=== PATIENT | female | born 1970 | race Caucasian/White ===

== ENCOUNTER 2020-02-17 08:00 | Outpatient (NON) | payer BC, SELFPAY ==
[2020-02-18 14:01] LABS: SARS-CoV-2 RNA PCR Negative
== END 2020-02-17 08:01 ==
PROVIDERS: PCP Internal Medicine; Visit Provider Internal Medicine
DX: J11.1 Influenza due to unidentified influenza virus with other respiratory manifestations (principal); Z20.828 Contact with and (suspected) exposure to other viral communicable diseases
CPT/HCPCS: 87635; C9803; U0003

== ENCOUNTER 2020-03-24 10:03 | Outpatient (CLI) | payer BC, SELFPAY ==
[2020-03-24 10:46] LABS: Alanine Aminotransferase 24 U/L (4-35); Albumin Level 4.5 g/dL (3.5-5.1); Alkaline Phosphatase 103 U/L (38-126); Aspartate Amino Transferase 31 U/L (14-36); Bilirubin,Total 0.3 mg/dL (0.2-1.3); Blood Urea Nitrogen 10 mg/dL (7-17); Calcium 8.9 mg/dL (8.4-10.2); Carbon Dioxide 25 mmol/L (22-30); Chloride 103 mmol/L (98-107); Cholesterol 189 mg/dL (0-200); Estimated Glomerular Filt Rate > 60; Glucose 117 mg/dL (65-105); HDL Direct 40 mg/dL; Potassium 3.9 mmol/L (3.4-5.0); Sodium 138 mmol/L (137-145); Triglycerides 135 mg/dL (<150)
[2020-03-24 10:57] LABS: LDL Cholesterol Direct 113 mg/dL
== END 2020-03-24 10:04 | disposition home or self-care (01) ==
LOC: ANHLAB 10:06
PROVIDERS: PCP Internal Medicine; Visit Provider Internal Medicine
DX: Z79.899 Other long term (current) drug therapy (principal); Z13.1 Encounter for screening for diabetes mellitus; Z13.220 Encounter for screening for lipoid disorders
CPT/HCPCS: 36415; 80053; 80061

== ENCOUNTER 2021-07-22 11:26 | Outpatient (CLI) | payer BC, SELFPAY ==
[2021-07-22 12:51] LABS: Add Urine Microscopic? YES; Appearance Urine Clear (Clear); Bilirubin Urine Negative (Negative); Blood Urine Negative (Negative); Color Urine Yellow (Yellow); Glucose Urine UA Negative (Negative); Ketones Urine Negative (Negative); Leukocyte Esterase Ur 3+ LEU/UL (Negative); Mucus Urine Rare /lpf; Nitrate Urine Negative (Negative); Protein Urine Negative (Negative); RBC Urine 0-2 /hpf (0-2); Specific Grav Ur 1.016 (1.001-1.035); Squamous Epithelial Cell Urine Many /hpf (Few); Urobilinogen Urine Negative mg/dL (<2.0)
[2021-07-22 13:03] LABS: Alanine Aminotransferase 19 U/L (4-35); Albumin Level 4.8 g/dL (3.5-5.1); Alkaline Phosphatase 77 U/L (38-126); Anion Gap 9 mmol/L (8-16); Aspartate Amino Transferase 26 U/L (14-36); Bilirubin,Total 0.6 mg/dL (0.2-1.3); Blood Urea Nitrogen 10 mg/dL (7-17); Calcium 9.7 mg/dL (8.4-10.2); Carbon Dioxide 27 mmol/L (22-30); Chloride 104 mmol/L (98-107); Cholesterol 198 mg/dL (0-200); Estimated Glomerular Filt Rate > 60; Glucose 90 mg/dL (65-110); HDL Direct 53 mg/dL; Potassium 4.2 mmol/L (3.4-5.0); Sodium 140 mmol/L (137-145); Triglycerides 110 mg/dL (<150)
[2021-07-22 13:14] LABS: LDL Cholesterol Direct 91 mg/dL
== END 2021-07-22 11:27 | disposition home or self-care (01) ==
PROVIDERS: PCP Internal Medicine; Visit Provider Internal Medicine
DX: N39.0 Urinary tract infection, site not specified (principal); I10 Essential (primary) hypertension
CPT/HCPCS: 36415; 80053; 80061; 81001; 87086; 87088

== ENCOUNTER 2022-12-03 00:13 | Emergency (ER) | payer BC, SELFPAY ==
[2022-12-03 00:31] VITALS: BP 114/7; PULSE 117; RESP 20; TEMP 37.1; O2SAT 95
--- NOTE | 2022-12-03 01:20 | PC.NURSE ---
Patient approached the intake desk and informed science writer that she was going to just go home. Reported she wasn't comfortable and she just wanted to go home and be comfortable. Patient alert and ambulatory without difficulty out of ED exit.
== END 2022-12-03 01:21 | disposition left against medical advice (07) ==
PROVIDERS: PCP Internal Medicine
DX: R53.1 Weakness (principal)
CPT/HCPCS: 99199

== ENCOUNTER 2022-12-03 18:44 | Emergency (ER) | payer BC, SELFPAY | END 2022-12-03 18:45 | disposition left against medical advice (07) | PROVIDERS: PCP Internal Medicine | DX: Z53.21 Procedure and treatment not carried out due to patient leaving prior to being seen by health care provider (principal) | CPT/HCPCS: 99199 ==

== ENCOUNTER 2023-05-24 13:29 | Outpatient (CLI) | payer BC, SELFPAY ==
--- NOTE | ~2023-05-24 | CT_ITS ---
EXAMINATION: CT brain wo con DATE: 05/24/2023 13:46 INDICATION: Headache. TECHNIQUE: Computed tomography (CT) of the head was performed without intravenous contrast. The mA wa s adjusted according to patient size. Iterative reconstruction technique was employed. The dose-lengt h product was 605.33 mGy-cm. COMPARISON: None FINDINGS: There is artifact from bilateral deep brain stimulators. There is no intracranial hemorrhag e, acute infarction, or abnormal intracranial mass lesion. The ventricles are normal in size. The par anasal sinuses are clear. The mastoid air cells are normal. IMPRESSION: 1. No acute intracranial pathology. Artifact from bilateral deep brain stimulators decreases sensitiv ity. Reviewed, dictated and finalized at location A. IMPRESSION: 1. No acute intracranial pathology. Artifact from bilateral deep brain stimulat ors decreases sensitivity.
== END 2023-05-24 13:30 | disposition home or self-care (01) ==
PROVIDERS: PCP Internal Medicine; Visit Provider Internal Medicine
DX: R51.9 Headache, unspecified (principal); Z96.82 Presence of neurostimulator
CPT/HCPCS: 70450

== ENCOUNTER 2024-02-29 10:05 | Outpatient (CLI) | payer BC, OTHER, SELFPAY ==
[2024-02-29 11:26] LABS: Alanine Aminotransferase 24 U/L (6-35); Albumin Level 4.6 g/dL (3.5-5.1); Alkaline Phosphatase 82 U/L (38-126); Anion Gap 7 mmol/L (4-12); Aspartate Amino Transferase 27 U/L (14-36); Bilirubin,Total 0.6 mg/dL (0.2-1.3); Blood Urea Nitrogen 11 mg/dL (7-17); Carbon Dioxide 26 mmol/L (22-30); Chloride 106 mmol/L (98-107); Cholesterol 193 mg/dL (0-200); Estimated Glomerular Filt Rate > 60; Glucose 98 mg/dL (65-110); HDL Direct 47 mg/dL; Potassium 4.3 mmol/L (3.4-5.0); Sodium 139 mmol/L (137-145); Triglycerides 119 mg/dL (<150)
[2024-02-29 11:37] LABS: LDL Cholesterol Direct 113 mg/dL
== END 2024-02-29 10:06 | disposition home or self-care (01) ==
LOC: ANHLAB 10:10
PROVIDERS: PCP Internal Medicine; Visit Provider Internal Medicine
DX: Z13.220 Encounter for screening for lipoid disorders (principal); Z13.1 Encounter for screening for diabetes mellitus; E66.9 Obesity, unspecified
CPT/HCPCS: 36415; 80053; 80061

== ENCOUNTER 2024-08-06 13:49 | Outpatient (CLI) | payer OTHER, SELFPAY ==
--- NOTE | ~2024-08-06 | XR_ITS ---
XR knee LT min 4V Ordering provider: Hailey Sharp MD History: . FELL ON LT KNEE 2 YRS AGO, BUMP ANTERIOR 1 INCH INF TO ERVIN . Comparison: None. FINDINGS: BONES: No acute fracture or dislocation. JOINT SPACES: Normal. SOFT TISSUES: Normal. Ossification of the quadriceps tendon into the patella is noted. IMPRESSION: No acute osseous abnormality left knee. Reviewed, dictated and finalized at location A.
== END 2024-08-06 13:50 | disposition home or self-care (01) ==
LOC: ANHIMG 13:53
PROVIDERS: Visit Provider Internal Medicine
DX: S89.92XA Unspecified injury of left lower leg, initial encounter (principal); X58.XXXA Exposure to other specified factors, initial encounter
CPT/HCPCS: 73564

== ENCOUNTER 2024-08-08 11:55 | Outpatient (CLI) | payer OTHER, SELFPAY ==
[2024-08-08 12:26] LABS: Basophils Absolute Auto 0.1 K/mm3 (0.0-0.1); Basophils Percent Auto 1.7 % (0.2-1.2); Eosinophils Absolute Auto 0.1 K/mm3 (0-0.3); Eosinophils Percent Auto 2.4 % (0-4.4); Hematocrit 43.5 % (37.0-47.0); Hemoglobin 14.2 g/dL (12.0-15.0); Immature Granulocyte Absolute 0.02 K/mm3 (0.00-0.031); Immature Granulocyte Percent A 0.4 % (0-0.5); Lymphocytes Percent Auto 40.9 % (18.3-44.2); Mean Corpuscular HGB Conc 32.6 g/dl (32-36); Mean Corpuscular Hemoglobin 29.3 pg (26-34); Mean Corpuscular Volume 89.9 fl (80-100); Mean Platelet Volume 10.5 fl (7.4-10.4); Monocytes Absolute Auto 0.5 K/mm3 (0.1-0.6); Neutrophils Percent Auto 43.6 % (45.5-73.1); Platelet Count Result 241 k/mm3 (150-375); Red Blood Count 4.84 M/mm3 (4.2-5.4); Red Cell Distribution Width 11.8 % (11.5-14.5); White Blood Count 4.6 K/mm3 (4.5-10.0)
[2024-08-08 12:39] LABS: Alanine Aminotransferase 23 U/L (6-35); Albumin Level 4.6 g/dL (3.5-5.1); Alkaline Phosphatase 94 U/L (38-126); Anion Gap 8 mmol/L (4-12); Aspartate Amino Transferase 28 U/L (14-36); Bilirubin,Total 0.5 mg/dL (0.2-1.3); Blood Urea Nitrogen 13 mg/dL (7-17); Calcium 9.4 mg/dL (8.4-10.2); Carbon Dioxide 30 mmol/L (22-30); Chloride 102 mmol/L (98-107); Estimated Glomerular Filt Rate > 60; Glucose 97 mg/dL (65-110); Potassium 4.5 mmol/L (3.4-5.0); Sodium 140 mmol/L (137-145)
== END 2024-08-08 11:56 | disposition home or self-care (01) ==
LOC: ANHLAB 11:56
PROVIDERS: PCP Internal Medicine; Visit Provider Internal Medicine
DX: Z00.00 Encounter for general adult medical examination without abnormal findings (principal); R53.83 Other fatigue
CPT/HCPCS: 36415; 80053; 84443; 85025

== ENCOUNTER 2024-12-04 16:17 | Outpatient (CLI) | payer OTHER, SELFPAY ==
--- NOTE | ~2024-12-04 | CT_ITS ---
EXAMINATION: CT lumbar spine wo con DATE: 12/04/2024 16:43 INDICATION: Resting tremor. TECHNIQUE: Computed tomography (CT) of the lumbar spine was performed without intravenous contrast. A utomated exposure control and iterative reconstruction technique were employed. The dose-length produ ct was 371.52 mGy-cm. COMPARISON: None FINDINGS: There is 3 degrees levocurvature of lumbar spine. Vertebral body heights are normal. Interv ertebral disc heights are normal. The following disc levels are specifically discussed: L1-L2: The disc does not extend beyond the endplate margin. There is moderate bilateral facet joint o steoarthritis. There is no neural foraminal stenosis. There is no central canal stenosis. L2-L3: The disc is bulging. There is moderate bilateral facet joint osteoarthritis. There is mild chuck ateral neural foraminal stenosis. There is no central canal stenosis. L3-L4: The disc is bulging. There is severe bilateral facet joint osteoarthritis. There is mild bilat eral neural foraminal stenosis. There is mild central canal stenosis. L4-L5: The disc is bulging. There is severe bilateral facet joint osteoarthritis. There is mild bilat eral neural foraminal stenosis. There is mild central canal stenosis. L5-S1: The disc does not extend beyond the endplate margin. There is severe bilateral facet joint ost eoarthritis. There is mild left neural foraminal stenosis. There is no central canal stenosis. IMPRESSION: 1. Mild lumbar spondylosis. Reviewed, dictated and finalized at location A. MAN IMPRESSION: 1. Mild lumbar spondylosis.
--- OUTSIDE RECORDS SUMMARY | 2024-12-04 16:22 | XMS_ITS | Encounter Summary ---
Author Organization [facility] Address [address] [place] [address] Care Team Providers Care Finished Hardware Erector Name Role Phone Hailey Sharp MD Primary Care Provider [phone] Encounter Details Date Type Department Care Team (Late Contact Info) Description 07/14/2019 Telephone [facility] [address] [place] [address] Jared Casey MD [facility] [place] [id number] Social History Tobacco Use Types Packs/Day Years Used Date Smoking Tobacco: Never Smokeless Tobacco: Never Alcohol Use Standard Drinks/Week Comments No 0 (1 standard drink = 0.6 oz pur e alcohol) Sex and Gender Information Value Date Recorded Sex Assigned at Not on file Gender Identity Not on file Sexual Orientation Not on file documented as of this encounter Patient Instructions * Patient Instructions* Prasanna Hyde - 07/14/2019 10:11 AM CDT Current Provider name:BOO Reason for call: NEEDS TO [facility] 07/22 DBS APPT, SATURDAY IS PREFERRED Patient Call Back number: [phone] documented in this encounter Plan of Treatment Upcoming Encounters Date Type Department Care Team (Late Contact Info) Description 05/06/2025 11:30 AM CDT Procedure visit [facility] - [facility]rology [address] [place] [address], [place] [id number] Jared Casey MD [address] [place] [address] [place] [id number] documented as of this encounter Visit Diagnoses Not on filedocumented in this encounter Care Teams Finished Hardware Erector Relationship Specialty Start Date End Date Hailey Sharp MD PCP - General 06/18/19 documented as of this encounter
--- OUTSIDE RECORDS SUMMARY | 2024-12-04 16:22 | XMS_ITS | Patient Health Summary ---
Author Organization [facility] Address [address] [place] [address] Care Team Providers Care Surgery Manager Name Role Phone Hailey Sharp MD Primary Care Provider [phone] Note from [facility],non-owned Affiliates and Associated Physician Practices is amultiple site organization consisting of ambulatory clinics and hospital sitesin [place], [place], [place] and [place]. This disclosure is being madepursuant to the Care Everywhere program and may not contain all information available regarding this patient. Last updated 18.[facility] Allergies * Adhesive Sensitivity(Skin Reactions) -Low Criticality * Baclofen(Dizziness) -Low Criticality * Bupropion(Nausea and/or Vomiting) -Low Criticality * Latex(Rash) -Medium Criticality * Naltrexone(Nausea and/or Vomiting) -Low Criticality * Penicillin G(Nausea and/or Vomiting) -Low Criticality * Skin Adhesives(Urticaria) -Medium Criticality Medications * Be aware that medications may not be up to date on this document. Alwaysverify current medications with the patient. * celecoxib (CELEBREX) 50 MG capsule Take 2 (two) capsules by mouth once daily * CONTRAVE 8-90 MG tablet(Started 09/29/2019) TK 1 T PO BID * Nurtec [address] 1 TABLET ON OR UNDER THE TONGUE ONCE A DAY NEEDED FOR ACUTE/SEVERE MIGRAINE * escitalopram (Lexapro) 20 MG tablet(Started 04/29/2024) Take 1 (one) tablet by mouth once daily * clobetasol (Temovate) 0.05 % cream(Started 04/21/2024) * eszopiclone (Lunesta) 2 MG tablet(Started 02/18/2024) TAKE 1 TABLET BY MOUTH DAILY AT BEDTIME NEEDED FOR INSOMNIA * zolpidem CR (Ambien Cr) 6.25 MG tablet(Started 01/30/2024) TAKE 1 TABLET BY MOUTH DAILY AT BEDTIME NEEDED FOR INSOMNIA Active Problems Problem Noted Date Diagnosed Date Migraine without status migrainosus, not intract able 03/27/2018 Presence of other specified functional implants 01/13/2015 S/P deep brain stimulator placement 01/13/2015 Essential tremor 12/31/2014 Tremor, essential 06/01/2014 Social History Tobacco Use Types Packs/Day Years Used Date Smoking Tobacco: Never Smokeless Tobacco: Never Tobacco Cessation:Counseling Given: No Alcohol Use Standard Drinks/Week Comments No 0 (1 standard drink = 0.6 oz pur e alcohol) Sex and Gender Information Value Date Recorded Sex Assigned at Not on file Gender Identity Not on file Sexual Orientation Not on file Last Filed Vital Signs Vital Sign Reading Time Taken Comments Blood Pressure 123/82 05/06/2024 7:50 AM CDT Pulse 84 05/06/2024 7:50 AM CDT Temperature 35.8 C (96.5 F) 05/06/2024 7:50 AM CDT Respiratory Rate 18 07/10/2019 10:45 AM CDT Oxygen Saturation 97% 05/06/2024 7:50 AM CDT Inhaled Oxygen Concentration 21% 07/10/2019 5 :50 AM CDT Weight 71.4 kg (157 lb 6.4 oz) 05/06/2024 7:50 A M CDT Height 165.1 cm (5' 5 ) 05/06/2024 7:50 AM CDT Body Mass Index 26.19 05/06/2024 7:50 AM CDT Medical Devices Implanted Type Area Flash Developer Device Identifier Shelf Expiration Date Model / Serial / Lot Vercise M8 Adapter 15cm Implanted:Qty: 2 on 07/10/2019 by Severiano Esteban MD at [facility] Left: Chest Wall 02/15/2020 [id number] / / Kit Gen Vercise Dinorah [facility] - [id number] Implanted:Qty: 1 on 07/10/2019 by Severiano Esteban MD at [facility] Left: Chest Wall [employer] Scimed 04/06/2021 [id number] / [id number] / Procedures * PROC DEEP BRAIN STIMULATOR(Performed 05/06/2024) Performed for Tremor * PROC DEEP BRAIN STIMULATOR(Performed 05/06/2024) Performed for Tremor * DE ANALYS BRN NPGT PRGRMG 15 MIN(Performed 08/17/2020) Performed for Tremor * DE ANALYS BRN NPGT PRGRMG 15 MIN(Performed 04/13/2020) Performed for Benign essential tremor * DE ANALYS BRN NPGT PRGRMG ADDL 15(Performed 04/13/2020) Performed for Benign essential tremor * DE ANALYS BRN NPGT PRGRMG 15 MIN(Performed 10/13/2019) Performed for Benign essential tremor * DE ANALYS BRN NPGT PRGRMG ADDL 15(Performed 10/13/2019) Performed for Benign essential tremor * CARDIAC EKG ORDER(Performed 09/24/2019) * DE ANALYS BRN NPGT PRGRMG 15 MIN(Performed 07/22/2019) Performed for Tremor * DE ANALYS BRN NPGT PRGRMG ADDL 15(Performed 07/22/2019) Performed for Tremor * CARDIAC EKG ORDER(Performed 07/13/2019) * XR CHEST 1VW(Performed 07/10/2019) Performed for Essential tremor * PATHOLOGY TISSUE(Performed 07/10/2019) Performed for Diagnosis unknown * INSERTION CRANIAL NEUROSTIMULATOR GENERATOR(Performed 07/10/2019) Performed for Diagnosis unknown * LARYNGEAL MASK AIRWAY(Performed 07/10/2019) * URINALYSIS W/MICROSCOPIC NO CULTURE(Performed 07/01/2019) Performed for Pre-op testing * PTT [facility](Performed 07/01/2019) Performed for Pre-op testing * PT-INR [facility](Performed 07/01/2019) Performed for Pre-op testing * CBC W AUTO DIFFERENTIAL(Performed 07/01/2019) Performed for Pre-op testing * BASIC METABOLIC PANEL (CALCIUM TOTAL)(Performed 07/01/2019) Performed for Pre-op testing * XR CHEST 2VW(Performed 07/01/2019) Performed for Pre-op testing * EKG 12-LEAD(Performed 07/01/2019) Performed for Pre-op testing * DE ANALYS BRN NPGT PRGRMG 15 MIN(Performed 01/13/2019) Performed for Essential tremor * DE ANALYS BRN NPGT PRGRMG ADDL 15(Performed 01/13/2019) Performed for Essential tremor * DE ANALYZE NEUROSTIM NO PROG(Performed 10/01/2018) Performed for Essential tremor * CT ANGIO BRAIN AND NECK(Performed 04/07/2018) Performed for Numbness * TYPE + SCREEN PANEL(Performed 04/07/2018) * XR CHEST 1VW PORTABLE(Performed 04/07/2018) Performed for Anterior chest wall pain * PT-INR [facility](Performed 04/07/2018) * COMPREHENSIVE METABOLIC PANEL(Performed 04/07/2018) * CBC W AUTO DIFFERENTIAL(Performed 04/07/2018) * CT BRAIN STROKE(Performed 04/07/2018) Performed for Muscle weakness (generalized) * GLUCOSE - POINT OF CARE(Performed 04/07/2018) * DE ELEC BEBE NEUROSTIM CMPLX BRAIN W/PROG; 1 HR(Performed 03/27/2018) Performed for Essential tremor * ERYTHROCYTE SEDIMENTATION RATE(Performed 11/04/2015) * C-REACTIVE PROTEIN(Performed 11/04/2015) * CT HEAD WO CONTRAST(Performed 11/03/2015) * URINALYSIS REFLEX TO MICROSCOPIC NO CULTURE(Performed 11/03/2015) * COMPREHENSIVE METABOLIC PANEL(Performed 11/03/2015) * CBC W AUTO DIFFERENTIAL(Performed 11/03/2015) * CBC W AUTO DIFFERENTIAL(Performed 11/03/2015) * CT GUIDED STEREO LOCALIZATION(Performed 08/13/2015) * BASIC METABOLIC PANEL (CALCIUM TOTAL)(Performed 08/13/2015) * CBC W AUTO DIFFERENTIAL(Performed 08/13/2015) * CBC W AUTO DIFFERENTIAL(Performed 08/13/2015) * XR SKULL 3VW OR LESS(Performed 08/12/2015) * XR NECK SOFT TISSUE(Performed 08/12/2015) * XR CHEST 1VW PORTABLE(Performed 08/12/2015) * FL OARM SURGERY(Performed 08/12/2015) * CT GUIDED STEREO LOCALIZATION(Performed 08/12/2015) * TYPE + SCREEN PANEL(Performed 08/11/2015) * BASIC METABOLIC PANEL (CALCIUM TOTAL)(Performed 08/11/2015) * PTT [facility](Performed 08/11/2015) * PT-INR [facility](Performed 08/11/2015) * CBC W AUTO DIFFERENTIAL(Performed 08/11/2015) * CBC W AUTO DIFFERENTIAL(Performed 08/11/2015) * URINALYSIS W/MICROSCOPIC NO CULTURE(Performed 08/11/2015) * CBC W AUTO DIFFERENTIAL(Performed 06/29/2015) * ERYTHROCYTE SEDIMENTATION RATE(Performed 06/29/2015) * C-REACTIVE PROTEIN(Performed 06/29/2015) * BASIC METABOLIC PANEL (CALCIUM TOTAL)(Performed 06/29/2015) * CBC W AUTO DIFFERENTIAL(Performed 06/29/2015) * XR CHEST 1VW PORTABLE(Performed 06/29/2015) * XR CHEST 1VW PORTABLE(Performed 01/05/2015) * XR NECK SOFT TISSUE(Performed 01/05/2015) * XR CHEST 1VW PORTABLE(Performed 01/05/2015) * TYPE + SCREEN PANEL(Performed 01/05/2015) * URINALYSIS W/MICROSCOPIC NO CULTURE(Performed 01/01/2015) * CULTURE URINE(Performed 01/01/2015) * CT GUIDED STEREO LOCALIZATION(Performed 01/01/2015) * BASIC METABOLIC PANEL (CALCIUM TOTAL)(Performed 01/01/2015) * CBC W AUTO DIFFERENTIAL(Performed 01/01/2015) * CBC W AUTO DIFFERENTIAL(Performed 01/01/2015) * XR SKULL 3VW OR LESS(Performed 12/31/2014) * FL OARM SURGERY(Performed 12/31/2014) * CT GUIDED STEREO LOCALIZATION(Performed 12/31/2014) * TYPE + SCREEN PANEL(Performed 12/31/2014) * COMPREHENSIVE METABOLIC PANEL(Performed 12/23/2014) * PTT [facility](Performed 12/23/2014) * URINALYSIS REFLEX TO MICROSCOPIC NO CULTURE(Performed 12/23/2014) * PT-INR [facility](Performed 12/23/2014) * CBC W AUTO DIFFERENTIAL(Performed 12/23/2014) * CBC W AUTO DIFFERENTIAL(Performed 12/23/2014) * MRI BRAIN WWO CONTRAST(Performed 07/23/2014) * CREATININE BLOOD - POCT (IP) [facility](Performed 07/23/2014) * DERMATOPATHOLOGY(Performed 01/14/2014) Results * PROC DEEP BRAIN STIMULATOR (05/06/2024 11:31 AM CDT) Narrative Jared Casey MD - 05/06/2024 11:31 AM CDT Jared Casey MD 05/06/2024 11:31 AM See procedure note for documentation. I spent 30 minutes in interrogating the battery, documenting the current parameters of amplitude, pulse width, frequency, impedance and current outflow and in reprogramming the deep brain stimulator as described in the clinical note with improvement in his symptoms of rigidity, tremor and bradykinesia. Jared Casey MD PROCEDURE/MINOR SURG ICAL ORDERABLES * DE ANALYS BRN NPGT PRGRMG 15 MIN (08/17/2020 6:33 PM [facility]) Narrative Jared Casey MD - 08/17/2020 6:33 PM [facility] Jared Casey MD 08/17/2020 6:34 PM See procedure note for documentation. I spent 15 minutes in interrogating the battery, documenting the current parameters of amplitude, pulse width, frequency, impedance and current outflow and in reprogramming the deep brain stimulator as described in the clinical note with improvement in his symptoms of, tremor. Jared Casey MD PROCEDURE/MINOR SURG ICAL ORDERABLES * DE ANALYS BRN NPGT PRGRMG ADDL 15, DE ANALYS BRN NPGT PRGRMG 15 MIN (04/13/2020 6:06 PM CDT) Jared Patel MD - 04/13/2020 6:06 PM CDT Jared Casey MD 04/13/2020 6:07 PM See procedure note for documentation. I spent 30 minutes in interrogating the battery, documenting the current parameters of amplitude, pulse width, frequency, impedance and current outflow and in reprogramming the deep brain stimulator as described in the clinical note with improvement in his symptoms of tremor. Jared Casey MD PROCEDURE/MINOR SURG ICAL ORDERABLES * DE ANALYS BRN NPGT PRGRMG ADDL 15, DE ANALYS BRN NPGT PRGRMG 15 MIN (10/13/2019 4:25 PM [facility]) Narrative Jared Casey MD - 10/13/2019 4:25 PM [facility] Jared Casey MD 10/13/2019 4:27 PM See procedure note for documentation. I spent 30 mts in the interrogation and reprogramming of the deep brain stimulator. Jared Casey MD PROCEDURE/MINOR SURG ICAL ORDERABLES * CARDIAC EKG ORDER (09/24/2019 11:26 AM [facility]) Only the most recent of2 resultswithin the time period is included. Narrative 09/24/2019 11:26 AM [facility] Ordered by an unspecified provider. Scanned Document CARDIAC SERVICES ORD ERABLES * DE ANALYS BRN NPGT PRGRMG ADDL 15, DE ANALYS BRN NPGT PRGRMG 15 MIN (07/22/2019 5:23 PM CDT) Narrative Jared Casey MD - 07/22/2019 5:23 PM CDT Jared Casey MD 07/22/2019 5:23 PM See procedure note for documentation. I spent 30 minutes in the interrogation and reprogramming of the deep brain stimulator Jared Casey MD PROCEDURE/MINOR SURG ICAL ORDERABLES * XR CHEST 1VW (07/10/2019 9:02 AM CDT) Anatomical Region Laterality Modality Chest Radiographic Hilda ging 07/10/2019 10:0 5 AM CDT Impressions 07/10/2019 5:16 PM CDT FINDINGS/IMPRESSION: Interval placement of a deep brain stimulator generator which superimposes the left chest with 2 intact leads extending bilaterally superiorly into the neck soft tissues. Reduced lung volumes. There is no focal consolidation, pleural effusion, or pneumothorax. The cardiomediastinal silhouette is partially obscured. Dictated by Chioma Dunbar MD (Resident). This report was approved by Chioma Dunbar on 07/10/2019 4:11 PM . I, Dr. BOB YAN have personally reviewed and interpreted this examination/study. This report was electronically signed by BOB YAN on 07/10/2019 5:16 PM . Narrative 07/10/2019 5:16 PM CDT EXAMINATION: XR CHEST 1VW HISTORY: s/p L generator revision COMPARISON: Comparison is made with a study from 07/01/2019. Procedure Note Bob Yan MD - 07/10/2019 EXAMINATION: XR CHEST 1VW HISTORY: s/p L generator revision COMPARISON: Comparison is made with a study from 07/01/2019. FINDINGS/IMPRESSION: Interval placement of a deep brain stimulator generator whichsuperimposes the left chest with 2 intact leads extending bilaterally superiorly into the neck soft tissues. Reduced lung volumes. There is no focal consolidation, pleural effusion, or pneumothorax. The cardiomediastinal silhouette is partially obscured. Dictated by Chioma Dunbar MD (Resident). This report was approved by Chioma Dunbar on 07/10/2019 4:11 PM . I, Dr. BOB YAN have personally reviewed and interpreted this examination/study. This report was electronically signed by BOB YAN on 07/10/2019 5:16 PM . Adam De Paz MD DIAGNOSTIC IMAGING O RDERABLES * PATHOLOGY TISSUE (07/10/2019 8:36 AM CDT) Case Report Surgical Pathology Report Case: [id number] Authorizing Provider: Severiano Esteban MD Collected: 07/10/2019 08:36 AM Ordering Location: [facility] Received: 07/10/2019 10:05 AM Pathologist: Starr Finnegan MD Specimen: Foreign Object, DBS generator 07/13/2019 10:00 AM CDT [facility] Final Diagnosis Deep brain stimulator, removal: - Foreign object (gross exam) 07/13/2019 10:00 AM T [facility] Clinical History The patient is a 49-year-old woman with deep brain stimulator, who underwent deep brain stimulator generator replacement. 07/13/2019 10:00 AM CDT [facility] Gross Description The requisition and specimen label(s) are identified with the patient name, Marquita Agudelo Received fresh, specimen A, DBS generator, is a 6.5 x 5.0 x 1.5 cm deep brain stimulator, serial number [id number]. Etched is a QR code and [employer]. No sections are taken. DS/erlin 07/13/2019 10:00 AM CDT [facility] Disclaimer The performance characteristics of all immunohistochemical and indirect immunofluorescence stains (if any) cited in this report were determined by the [facility] of [facility]. Some of these tests were developed by our own laboratory and have not been cleared or approved by the US Food and Drug Administration. The FDA does not require this test to go through premarket FDA review. These tests are used for clinical purposes. They should not be regarded as investigational or for research. This laboratory is certified under the Clinical Laboratory Improvement Amendments (CLIA) as qualified to perform high complexity clinical laboratory testing. This case has been personally reviewed and interpreted by the attending (teaching) pathologist. 07/13/2019 10:00 AM CDT [facility] Embedded Images 07/13/2019 10:00 AM CDT [facility] Removal MISCELLANEOUS SAMPLES / Unknown 07/10/2019 8:36 AM CDT 07/10/2019 10:05 AM CDT Comment:Pre-op diagnosis: end of deep brain stimulator Severiano Esteban MD LAB - PATHOLOGY/CYT OLOGY ORDERABLES [facility] [address] [phone] * LARYNGEAL MASK AIRWAY (07/10/2019 7:56 AM CDT) Narrative Jace Duncan, - 07/10/2019 7:56 AM CDT Jace Duncan DO 07/10/2019 7:58 AM LMA Placement Procedure/LDA Note: Patient Location: OR. LMA Insertion Date/Time: 07/10/2019 7:40 AM Procedure: LMA. Pretreatment: 100% O2 Induction: standard IV Patient position: sniffing and supine. Mask Ventilation: easy Type: LMA Size: 4 Number of Attempts: 1. Cuff volume (mL): 10 Placement verified by: direct visualization, bilateral breath sounds, chest auscultation and CO2 monitor Procedure Start Time: 07/10/2019 7:40 AM. Procedure End Time: 07/10/2019 7:41 AM. Procedure Total Time: 1 minutes. Staff Section Anesthesia Provider: Jace Duncan, , Performed the procedure Provider #1: Toni Ramsey MD. Additional Comments: Performed by. Toni Ramsey MD GENERAL ANESTHESIA ORDERABLES * PTT [facility] (07/01/2019 3:43 PM CDT) Only the most recent of3 resultswithin the time period is included. APTT 26.2 23.0 - 38.4 Seconds 07/01/2019 4:21 PM CDT [facility] Comment: * Please Note: New therapeutic range for heparin therapy. * Suggested therapeutic range for full dose I.V. heparin therapy for venous thromboembolism is 65 to 103 seconds. Blood BLOOD SPECIMEN / Unknown Lab Venipuncture / Unknown 07/01/2019 3:43 PM CDT 07/01/2019 3:50 PM CDT Severiano Esteban MD LAB - COAGULATION O JOCE Performing Organization Address City/[facility]/ZIP Co de Phone Number [address] [phone] * PT-INR [facility] (07/01/2019 3:43 PM CDT) Only the most recent of4 resultswithin the time period is included. PT 12.4 12.1 - 14.8 Seconds 07/01/2019 4:21 PM CDT [facility] INR 1.0 See Comment 07/01/2019 4:21 PM T [facility] Comment: The suggested therapeutic range for standard coumadin (warfarin) therapy is an INR of 2.0-3.0. For high-risk patients (Mechanical Mitral Valve Prosthesis, etc.), the suggested prophylactic therapeutic range is an INR of 2.5-3.5. Blood BLOOD SPECIMEN / Unknown Lab Venipuncture / Unknown 07/01/2019 3:43 PM CDT 07/01/2019 3:50 PM CDT Severiano Esteban MD LAB - COAGULATION O JOCE Performing Organization Address City/[facility]/ZIP Co de Phone Number [address] [phone] * (ABNORMAL) URINALYSIS W/MICROSCOPIC NO CULTURE (07/01/2019 3:43 PM T) Only the most recent of3 resultswithin the time period is included. Color UA Yellow Straw, Yellow, Colorless 07/01/2019 4:25 PM [facility] Clarity UA Slt Cloudy Clear, t Cloudy 07/01/2019 4:25 PM [facility] Specific [place] UA 1.019 1.005 - 1.030 07/01/2019 4:25 PM [facility] pH UA 5.0 5.0 - 8.0 pH 07/01/2019 4:25 PM [facility] Protein UA Negative Negative mg/dL 07/01/2019 4:25 PM [facility] Glucose UA Negative Negative mg/dL 07/01/2019 4:25 PM [facility] Ketone UA Negative Negative mg/dL 07/01/2019 4:25 PM [facility] Bilirubin UA Negative Negative mg/dL 07/01/2019 4:25 PM [facility] Blood UA Negative Negative 07/01/2019 4:25 PM [facility] Nitrite UA Negative Negative 07/01/2019 4:25 PM [facility] Leukocyte Esterase Trace(A) Negative 07/01/2019 4:25 PM [facility] Urobilinogen UA Negative Negative mg/dL 07/01/2019 4:25 PM [facility] RBC UA 3-5 None Seen, 0-2, 3-5 /HPF 07/01/2019 4:25 PM [facility] WBC UA 11-20(A) None Seen, 0-5 /HPF 07/01/2019 4:25 PM [facility] Bacteria UA 1+(A) None, Trace /HPF 07/01/2019 4:25 PM [facility] Squamous Epithelial Cells UA 3-5(A) None Seen, 0-2 /HPF 07/01/2019 4:25 PM [facility] Mucus UA 2+(A) None, 1+ /LPF 07/01/2019 4:25 PM [facility] Urine URINE SPECIMEN OBTAINED BY CLEAN CATCH PROCEDURE / Unknown Collection / Unknown 07/01/2019 3:43 PM CDT 07/01/2019 3:50 PM CDT [facility] - 07/01/2019 4:25 PM CDT Severiano Esteban MD LAB - URINALYSIS OR DERABLES [facility] [address] [place] [address], [facility] [phone] * (ABNORMAL) CBC WITH DIFFERENTIAL (07/01/2019 3:43 PM CDT) Only the most recent of14 resultswithin the time period is included. WBC 9.3 3.5 - 10.5 10 3/uL 07/01/2019 4:11 PM [facility] RBC 4.99 3.90 - 5.00 10 6/uL 07/01/2019 4:11 PM [facility] Hemoglobin 14.2 12.0 - 15.5 g/dL 07/01/2019 4:11 PM [facility] Hematocrit 42.5 35.0 - 45.0 % 07/01/2019 4:11 PM [facility] MCV 85.2 81.0 - 97.0 fL 07/01/2019 4:11 PM [facility] MCH 28.5 28.0 - 34.0 pg 07/01/2019 4:11 PM [facility] MCHC 33.4 32.0 - 36.0 g/dL 07/01/2019 4:11 PM [facility] Platelet Count 301 150 - 400 10 3/uL 07/01/2019 4:11 PM [facility] RDW-SD 36.6 36.0 - 50.0 fL 07/01/2019 4:11 PM [facility] RDW-CV 11.9 11.2 - 14.8 % 07/01/2019 4:11 PM [facility] MPV 11.6 9.3 - 12.8 fL 07/01/2019 4:11 PM [facility] nRBC Absolute 0.00 0 10 3/uL 07/01/2019 4:11 PM [facility] nRBC Auto 0.0 0 /100 WBC 07/01/2019 4:11 PM [facility] Neutrophils % 53.4 35.0 - 70.0 % 07/01/2019 4:11 PM [facility] Lymphocytes % 34.5 19.7 - 55.1 % 07/01/2019 4:11 PM [facility] Monocytes % 8.9 3.0 - 15.0 % 07/01/2019 4:11 PM [facility] Eosinophils % 1.7 0.0 - 6.0 % 07/01/2019 4:11 PM [facility] Basophil % 1.1 0.0 - 1.5 % 07/01/2019 4:11 PM [facility] Neutrophils Absolute 5.0 1.6 - 7.0 10 3/uL 07/01/2019 4:11 PM [facility] Lymphocyte Absolute 3.2(H) 0.8 - 2.9 10 3/uL 07/01/2019 4:11 PM [facility] Monocytes Absolute 0.83(H) 0.14 - 0.66 10 3/uL 07/01/2019 4:11 PM [facility] Eosinophils Absolute 0.16 0.00 - 0.45 10 3/uL 07/01/2019 4:11 PM [facility] Basophils Absolute 0.10(H) 0.00 - 0.06 10 3/uL 07/01/2019 4:11 PM [facility] Immature Granulocytes % 0.4 0.0 - 1.0 % 07/01/2019 4:11 PM [facility] Blood BLOOD SPECIMEN / Unknown Lab Venipuncture / Unknown 07/01/2019 3:43 PM CDT 07/01/2019 3:50 PM CDT Severiano Esteban MD LAB - HEMATOLOGY OR DERABLES [facility] [address] [place] [address] * BASIC METABOLIC PANEL (CALCIUM TOTAL) (07/01/2019 3:43 PM CDT) Only the most recent of5 resultswithin the time period is included. BUN 10 7 - 26 mg/dL 07/01/2019 4:19 PM [facility] Creatinine 0.8 0.6 - 1.2 mg/dL 07/01/2019 4:19 PM [facility] Sodium 139 136 - 145 mmol/L 07/01/2019 4:19 PM [facility] Potassium 4.1 3.5 - 4.5 mmol/L 07/01/2019 4:19 PM [facility] Chloride 103 98 - 107 mmol/L 07/01/2019 4:19 PM [facility] CO2 27 22 - 29 mmol/L 07/01/2019 4:19 PM [facility] Glucose 86 70 - 115 mg/dL 07/01/2019 4:19 PM [facility] Calcium 9.8 8.4 - 10.2 mg/dL 07/01/2019 4:19 PM [facility] Anion Gap 13 8 - 18 07/01/2019 4:19 PM [facility] BUN/Creatinine Ratio 13 7 - 23 07/01/2019 4:19 PM [facility] Osmolality Calculated 286 270 - 300 mOsm/kg 07/01/2019 4:19 PM [facility] eGFR >60 >60 mL/min/1.7 3 m2 07/01/2019 4:19 PM [facility] Blood BLOOD SPECIMEN / Unknown Lab Venipuncture / Unknown 07/01/2019 3:43 PM CDT 07/01/2019 3:50 PM CDT Severiano Esteban MD LAB - CHEMISTRY ORD ERABLES [address] [phone] * XR CHEST 2VW (07/01/2019 3:37 PM CDT) Anatomical Region Laterality Modality Chest Radiographic Hilda ging 07/01/2019 3:37 PM CDT Impressions 07/01/2019 4:29 PM CDT IMPRESSION: No acute pulmonary process. Dictated by Tong Callahan MD (residential treatment staff). I, Dr. BOB YAN have personally reviewed and interpreted this examination/study. This report was electronically signed by BOB YAN on 07/01/2019 4:29 PM . Narrative 07/01/2019 4:29 PM CDT EXAMINATION: XR CHEST 2VW HISTORY: Z01.818: Pre-op testing COMPARISON: Comparison is made with chest radiograph dated 04/07/2018. FINDINGS: A deep brain stimulator generator superimposes the left chest wall with two intact leads extending bilaterally superiorly into the neck soft tissues. There is no focal consolidation, pleural effusion, or pneumothorax. The cardiomediastinal silhouette is normal. The visible bony thorax is intact. Procedure Note Bob Yan MD - 07/01/2019 EXAMINATION: XR CHEST 2VW HISTORY: Z01.818: Pre-op testing COMPARISON: Comparison is made with chest radiograph dated 04/07/2018. FINDINGS: A deep brain stimulator generator superimposes the left chest wall with two intact leads extending bilaterally superiorly into the neck soft tissues. There is no focal consolidation, pleural effusion, or pneumothorax. The cardiomediastinal silhouette is normal. The visiblebony thorax is intact. IMPRESSION: No acute pulmonary process. Dictated by Tong Callahan MD (residential treatment staff). I, Dr. BOB YAN have personally reviewed and interpreted this examination/study. This report was electronically signed by BOB YAN on 07/01/2019 4:29 PM . Severiano Esteban MD DIAGNOSTIC IMAGING ORDERABLES * EKG 12-LEAD (07/01/2019 2:39 PM CDT) Ventricular Rate 84 BPM [facility] MUSE Atrial Rate 84 BPM [facility] MUSE P-R Interval 158 ms [facility] MUSE QRS Duration ms 72 ms [facility] MUSE Q-T Interval ms 376 ms [facility] MUSE QTC Calculation (Bezet) 444 ms [facility] M[facility] Calculated P [place] 60 degrees [facility] Calculated R [place] 40 degrees [facility] Calculated T [place] 58 degrees [facility] Interpretation EKG NORMAL SINUS RHYTHM NORMAL ECG NO PREVIOUS ECGS AVAILABLE Confirmed by Nabil Beaver ([id number]), clinical editor Keny Arriaga [id number]) on 08/08/2019 7:59:04 PM [facility] 07/01/2019 2:39 PM CDT 08/08/2019 7:59 PM CDT Severiano Esteban MD ECG ORDERABLES [facility] * DE ANALYS BRN NPGT PRGRMG ADDL 15, DE ANALYS BRN NPGT PRGRMG 15 MIN (01/13/2019 9:42 PM CDT) Narrative Jared Casey MD - 01/13/2019 9:42 PM CDT Jared Casey MD 01/13/2019 9:42 PM See procedure note for documentation. Jared Casey MD PROCEDURE/MINOR SURG ICAL ORDERABLES * DE ANALYZE NEUROSTIM NO PROG (10/01/2018 4:38 PM [facility]) Narrative Jared Casey MD - 10/01/2018 4:38 PM [facility] Jared Casey MD 10/01/2018 4:38 PM See procedure note for documentation. Jared Casey MD PROCEDURE/MINOR SURG ICAL ORDERABLES * CT ANGIO BRAIN AND NECK (04/07/2018 8:14 PM CDT) Anatomical Region Laterality Modality Head Computed Tomogra phy 04/08/2018 7:23 AM CDT Impressions 04/08/2018 7:34 AM CDT IMPRESSION: 1. No acute intracranial hemorrhage. The deep brain stimulator leads are in stable position. 2. No large arterial occlusions or significant stenoses identified in the head or neck. This report was electronically signed by JENNIFER CALDERON on 04/08/2018 7:34 AM . Narrative 04/08/2018 7:34 AM CDT EXAMINATION: 1. Computed tomographic (CT) of the head without contrast. 2. CT angiography of the head without and with contrast 2. CT angiography of the neck with contrast HISTORY: Code Stroke TECHNIQUE: CT of the head was performed without contrast according to standard protocol. Then CT angiography of the head and neck was obtained after the uneventful administration of 50 mL Isovue-370 intravenous contrast. Three dimensional postprocessing was performed by the technologist and sent to the workstation for review. FINDINGS: Comparison is made with a CT head without intravenous contrast dated 11/03/2015. NON-ANGIOGRAPHIC FINDINGS: There are no significant interval changes in the 3 hours interval between the original nonenhanced CT head examination and the nonenhanced portion of the CT angiography of the head. No acute intra- or extra-axial hemorrhage or fluid collections are identified. The bilateral frontal approach deep brain stimulator leads are in stable position, terminating in the subthalamic region, causing streak artifact which slightly hampers evaluation of the adjacent structures. The ventricles are of normal size, shape, and morphology. The basilar cisterns are patent. No mass, mass effect or midline shift is seen. The garcia-white matter differentiation is normal. There are no significant white matter changes or interval infarctions. The orbital contents, paranasal sinuses, and mastoids appear normal. No acute fracture is identified. No soft tissue abnormalities are identified in the neck. The generator of the brain stimulator is in the left upper anterior chest wall. ANGIOGRAPHIC FINDINGS: The visible aortic arch appears normal. There is a common origin of the innominate and left common carotid arteries from the aortic arch. There are no atherosclerotic calcifications. The innominate artery and both subclavian arteries appear normal. The right common and internal carotid arteries as well as the right carotid bifurcation appear normal. The left common and internal carotid arteries as well as the left carotid bifurcation appear normal. The cervical vertebral arteries in the V1 and V2 segments appear normal. The vertebral arteries are codominant. The The distal internal carotid arteries appear normal. The anterior and middle cerebral arteries appear normal, except for hypoplasia of left A1 branch. The [place] is complete. The distal vertebral arteries in the V3 and V4 segments appear normal. The basilar artery and posterior cerebral arteries appear normal. No aneurysms, vascular occlusions, or intracranial stenoses are identified. Procedure Note Jennifer Calderon MD - 04/08/2018 EXAMINATION: 1. Computed tomographic (CT) of the head without contrast. 2. CT angiography of the head without and with contrast 2. CT angiography of the neck with contrast HISTORY: Code Stroke TECHNIQUE: CT of the head was performed without contrast according to standard protocol. Then CT angiography of the head and neck was obtained after the uneventful administration of 50 mL Isovue-370 intravenous contrast. Three dimensional postprocessing was performed by the technologist and sent to the workstation for review. FINDINGS: Comparison is made with a CT head without intravenous contrast dated 11/03/2015. NON-ANGIOGRAPHIC FINDINGS: There are no significant interval changes in the 3 hours intervalbetween the original nonenhanced CT head examination and the nonenhanced portion of the CT angiography of the head. No acute intra- or extra-axial hemorrhage or fluid collections are identified. The bilateral frontal approach deep brain stimulator leadsare in stable position, terminating in the subthalamic region, causingstreak artifact which slightly hampers evaluation of the adjacent structures.The ventricles are of normal size, shape, and morphology. The basilarcisterns are patent. No mass, mass effect or midline shift is seen. Thegray-white matter differentiation is normal. There are no significant white matter changes or interval infarctions. The orbital contents, paranasalsinuses, and mastoids appear normal. No acute fracture is identified. No soft tissue abnormalities are identified in the neck. The generatorof the brain stimulator is in the left upper anterior chest wall. ANGIOGRAPHIC FINDINGS: The visible aortic arch appears normal. There is a common origin of the innominate and left common carotid arteries from the aortic arch. There are no atherosclerotic calcifications. The innominate artery and both subclavian arteries appear normal. The right common and internal carotid arteries as well as the right carotid bifurcation appear normal. Theleft common and internal carotid arteries as well as the left carotid bifurcation appear normal. The cervical vertebral arteries in the V1 and V2 segments appear normal. The vertebral arteries are codominant. The The distal internal carotid arteries appear normal. The anterior and middle cerebral arteries appear normal, except for hypoplasia of left A1 branch. The [place] is complete. The distal vertebral arteriesin the V3 and V4 segments appear normal. The basilar artery and posterior cerebral arteries appear normal. No aneurysms, vascular occlusions, or intracranial stenoses are identified. IMPRESSION: 1. No acute intracranial hemorrhage. The deep brain stimulator leads are in stable position. 2. No large arterial occlusions or significant stenoses identified inthe head or neck. This report was electronically signed by JENNIFER CALDERON on 04/08/2018 7:34 AM . Beth Soni MD CT ORDERABLES * TYPE + SCREEN PANEL (04/07/2018 5:57 PM CDT) Only the most recent of4 resultswithin the time period is included. Antibody Screen NEG 8 6:58 PM CDT [facility] ABO Rh O POS 04/07/2018 6:58 PM CDT [facility] Blood Bank BLOOD SPECIMEN / Unknown 04/07/2018 5:57 PM CDT 04/07/2018 5:57 PM CDT Arturo Cloud MD LAB - BLOOD BANK ORD ERABLES [facility] [address] * XR CHEST 1VW PORTABLE (04/07/2018 5:40 PM CDT) Only the most recent of5 resultswithin the time period is included. Anatomical Region Laterality Modality Chest Radiographic Hilda ging 04/07/2018 5:46 PM CDT Impressions 04/08/2018 9:20 AM CDT FINDINGS/IMPRESSION: A deep brain stimulator generator superimposes the left chest wall with 2 intact leads extending bilaterally superiorly into the neck soft tissues. There is no focal consolidation, pleural effusion, or pneumothorax. The cardiomediastinal silhouette is normal. Dictated by Jarrod Feliciano MD (residential treatment staff). Dr. MOISE Turcios MD have personally reviewed and interpreted this examination/study. This report was electronically signed by MOISE HARMON MD on 04/08/2018 9:20 AM . Narrative 04/08/2018 9:20 AM CDT EXAMINATION: XR CHEST 1VW PORTABLE HISTORY: left chest wall pain COMPARISON: Comparison is made with a study from 08/12/2015. Procedure Note Moise Harmon MD - 04/08/2018 EXAMINATION: XR CHEST 1VW PORTABLE HISTORY: left chest wall pain COMPARISON: Comparison is made with a study from 08/12/2015. FINDINGS/IMPRESSION: A deep brain stimulator generator superimposes the left chest wall with2 intact leads extending bilaterally superiorly into the neck softtissues. There is no focal consolidation, pleural effusion, or pneumothorax. The cardiomediastinal silhouette is normal. Dictated by Jarrod Feliciano MD (residential treatment staff). I, Dr. MOISE HARMON MD have personally reviewed and interpreted this examination/study. This report was electronically signed by MOISE HARMON MD on04/08/2018 9:20 AM . Beth Soni MD DIAGNOSTIC IMAGING O RDERABLES * (ABNORMAL) COMPREHENSIVE METABOLIC PANEL (04/07/2018 5:17 PM T) Only the most recent of3 resultswithin the time period is included. BUN 8 7 - 26 mg/dL 04/07/2018 6:05 PM [facility] Creatinine 1.0 0.6 - 1.2 mg/dL 04/07/2018 6:05 PM [facility] Sodium 139 136 - 145 mmol/L 04/07/2018 6:05 PM [facility] Potassium 4.3 3.5 - 4.5 mmol/L 04/07/2018 6:05 PM [facility] Chloride 103 98 - 107 mmol/L 04/07/2018 6:05 PM [facility] CO2 26 22 - 29 mmol/L 04/07/2018 6:05 PM [facility] Glucose 90 70 - 115 mg/dL 04/07/2018 6:05 PM [facility] Calcium 10.0 8.4 - 10.2 mg/dL 04/07/2018 6:05 PM [facility] Protein Total 8.3 6.0 - 8.3 g/dL 04/07/2018 6:05 PM [facility] Albumin 4.3 3.4 - 5.0 g/dL 04/07/2018 6:05 PM [facility] Bilirubin Total 0.5 0.2 - 1.2 mg/dL 04/07/2018 6:05 PM [facility] Alkaline Phosphatase 112 40 - 150 Units/L 04/07/2018 6:05 PM [facility] ALT 27 0 - 55 Units/L 04/07/2018 6:05 PM [facility] AST 23 5 - 34 Units/L 04/07/2018 6:05 PM [facility] Anion Gap 14 8 - 18 04/07/2018 6:05 PM [facility] BUN/Creatinine Ratio 8 7 - 23 04/07/2018 6:05 PM CDT [facility] Osmolality Calculated 286 270 - 300 mOsm/kg 04/07/2018 6:05 PM CDT [facility] Albumin/Globulin Ratio 1.1 1.1 - 2.3 04/07/2018 6:05 PM CDT [facility] eGFR 59(L) >60 mL/min/1.7 3 m2 04/07/2018 6:05 PM CDT [facility] Blood BLOOD SPECIMEN / Unknown Venipuncture / Unknown 04/07/2018 5:17 PM CDT 04/07/2018 5:21 PM CDT Jacky Singh MD LAB - CHEMISTRY [facility]ISA BAIG Performing Organization Address City/State/[facility] Co de Phone Number [address] [phone] * CT BRAIN STROKE PROTOCOL (04/07/2018 5:07 PM CDT) Anatomical Region Laterality Modality Head Computed Tomogra phy 04/08/2018 7:23 AM CDT Impressions 04/08/2018 7:34 AM CDT IMPRESSION: 1. No acute intracranial hemorrhage. The deep brain stimulator leads are in stable position. 2. No large arterial occlusions or significant stenoses identified in the head or neck. This report was electronically signed by JENNIFER CALDERON on 04/08/2018 7:34 AM . Narrative 04/08/2018 7:34 AM CDT EXAMINATION: 1. Computed tomographic (CT) of the head without contrast. 2. CT angiography of the head without and with contrast 2. CT angiography of the neck with contrast HISTORY: Code Stroke TECHNIQUE: CT of the head was performed without contrast according to standard protocol. Then CT angiography of the head and neck was obtained after the uneventful administration of 50 mL Isovue-370 intravenous contrast. Three dimensional postprocessing was performed by the technologist and sent to the workstation for review. FINDINGS: Comparison is made with a CT head without intravenous contrast dated 11/03/2015. NON-ANGIOGRAPHIC FINDINGS: There are no significant interval changes in the 3 hours interval between the original nonenhanced CT head examination and the nonenhanced portion of the CT angiography of the head. No acute intra- or extra-axial hemorrhage or fluid collections are identified. The bilateral frontal approach deep brain stimulator leads are in stable position, terminating in the subthalamic region, causing streak artifact which slightly hampers evaluation of the adjacent structures. The ventricles are of normal size, shape, and morphology. The basilar cisterns are patent. No mass, mass effect or midline shift is seen. The garcia-white matter differentiation is normal. There are no significant white matter changes or interval infarctions. The orbital contents, paranasal sinuses, and mastoids appear normal. No acute fracture is identified. No soft tissue abnormalities are identified in the neck. The generator of the brain stimulator is in the left upper anterior chest wall. ANGIOGRAPHIC FINDINGS: The visible aortic arch appears normal. There is a common origin of the innominate and left common carotid arteries from the aortic arch. There are no atherosclerotic calcifications. The innominate artery and both subclavian arteries appear normal. The right common and internal carotid arteries as well as the right carotid bifurcation appear normal. The left common and internal carotid arteries as well as the left carotid bifurcation appear normal. The cervical vertebral arteries in the V1 and V2 segments appear normal. The vertebral arteries are codominant. The The distal internal carotid arteries appear normal. The anterior and middle cerebral arteries appear normal, except for hypoplasia of left A1 branch. The [place] is complete. The distal vertebral arteries in the V3 and V4 segments appear normal. The basilar artery and posterior cerebral arteries appear normal. No aneurysms, vascular occlusions, or intracranial stenoses are identified. Procedure Note Jennifer Calderon MD - 04/08/2018 EXAMINATION: 1. Computed tomographic (CT) of the head without contrast. 2. CT angiography of the head without and with contrast 2. CT angiography of the neck with contrast HISTORY: Code Stroke TECHNIQUE: CT of the head was performed without contrast according to standard protocol. Then CT angiography of the head and neck was obtained after the uneventful administration of 50 mL Isovue-370 intravenous contrast. Three dimensional postprocessing was performed by the technologist and sent to the workstation for review. FINDINGS: Comparison is made with a CT head without intravenous contrast dated 11/03/2015. NON-ANGIOGRAPHIC FINDINGS: There are no significant interval changes in the 3 hours intervalbetween the original nonenhanced CT head examination and the nonenhanced portion of the CT angiography of the head. No acute intra- or extra-axial hemorrhage or fluid collections are identified. The bilateral frontal approach deep brain stimulator leadsare in stable position, terminating in the subthalamic region, causingstreak artifact which slightly hampers evaluation of the adjacent structures.The ventricles are of normal size, shape, and morphology. The basilarcisterns are patent. No mass, mass effect or midline shift is seen. Thegray-white matter differentiation is normal. There are no significant white matter changes or interval infarctions. The orbital contents, paranasalsinuses, and mastoids appear normal. No acute fracture is identified. No soft tissue abnormalities are identified in the neck. The generatorof the brain stimulator is in the left upper anterior chest wall. ANGIOGRAPHIC FINDINGS: The visible aortic arch appears normal. There is a common origin of the innominate and left common carotid arteries from the aortic arch. There are no atherosclerotic calcifications. The innominate artery and both subclavian arteries appear normal. The right common and internal carotid arteries as well as the right carotid bifurcation appear normal. Theleft common and internal carotid arteries as well as the left carotid bifurcation appear normal. The cervical vertebral arteries in the V1 and V2 segments appear normal. The vertebral arteries are codominant. The The distal internal carotid arteries appear normal. The anterior and middle cerebral arteries appear normal, except for hypoplasia of left A1 branch. The [place] is complete. The distal vertebral arteriesin the V3 and V4 segments appear normal. The basilar artery and posterior cerebral arteries appear normal. No aneurysms, vascular occlusions, or intracranial stenoses are identified. IMPRESSION: 1. No acute intracranial hemorrhage. The deep brain stimulator leads are in stable position. 2. No large arterial occlusions or significant stenoses identified inthe head or neck. This report was electronically signed by JENNIFER CALDERON on 04/08/2018 7:34 AM . Jacky Singh MD CT ORDERABLES * GLUCOSE - POINT OF CARE (04/07/2018 4:52 PM CDT) Glucose WB/POC 71 70 - 115 mg/dL 04/07/2018 6:16 PM CDT [facility] Specimen Type Arterial/C apillary 04/07/2018 6:16 PM CDT [facility] Blood BLOOD SPECIMEN / Unknown 04/07/2018 4:52 PM CDT 04/07/2018 6:16 PM CDT Narrative [facility] - 04/07/2018 6:16 PM CDT Histopathology Technician: PASQUALE NEW Provider Unknown LAB - POINT OF CARE ORDERABLES Performing Organization Address [facility] Co de Phone Number [address] [phone] * DE ELEC BEBE NEUROSTIM CMPLX BRAIN W/PROG; 1 HR (03/27/2018 2:41 PM CDT) Narrative Jared Casey MD - 03/27/2018 2:41 PM CDT Jared Casey MD 03/27/2018 2:41 PM See procedure note for documentation. Jared Casey MD PROCEDURE/MINOR SURG ICAL ORDERABLES * C-REACTIVE PROTEIN (11/04/2015 12:00 AM [facility]) Only the most recent of2 resultswithin the time period is included. C-Reactive Protein <0.5 <=0.5 mg/dL [facility] Blood specimen (specimen) BLOOD SPECIMEN / Unknown 11/04/2015 11/04/2015 12:05 AM [facility] Ignacio Walton MD LAB - CHEMISTRY [facility]ISA BAIG Performing Organization Address [facility] Co de Phone Number [address] [phone] * ERYTHROCYTE SEDIMENTATION RATE (11/04/2015 12:00 AM [facility]) Only the most recent of2 resultswithin the time period is included. Erythrocyte Sedimentation Rate Westergren 18 0 - 20 MM/HR [facility] Comment: ########################################################################## # Please Note: New age specific reference ranges have been implemented. # ########################################################################## Blood specimen (specimen) BLOOD SPECIMEN / Unknown 11/04/2015 11/04/2015 12:05 AM [facility] Ignacio Walton MD LAB - HEMATOLOGY ORD ERABLES [address] [phone] * CT HEAD WO CONTRAST (11/03/2015 11:19 PM [facility]) Anatomical Region Laterality Modality Head Other Impressions 11/04/2015 6:35 AM [facility] IMPRESSION: 1. No acute intracranial process. Preliminary findings were relayed to Dr. Walton at 11:42 PM on 03 November 2015 by Boo Mustafa. This report was electronically signed by LEOLA SCRUGGS M.D. on 11/04/2015 6:35 AM . Narrative 11/04/2015 6:35 AM [facility] EXAMINATION: Computed tomography (CT) of the head without contrast HISTORY: Seizure TECHNIQUE: CT of the head was performed without contrast according to standard protocol. FINDINGS: Comparison is made with a study from 13 August 2015. No acute intra- or extra-axial fluid collections are identified. Hyperattenuation along the anterior left frontal lobe represents Banda scatter. The ventricles are of normal size, shape, and morphology. The basilar cisterns are patent. No mass effect or midline shift is seen. The garcia-white matter differentiation is normal. Bilateral frontal approach deep brain stimulator leads terminating in the subthalamic region are unchanged in position. The visualized portions of the orbits, paranasal sinuses, and mastoids appear normal. No acute fracture is identified. Procedure Note Leola Scruggs MD - 01/11/2018 EXAMINATION: Computed tomography (CT) of the head without contrast HISTORY: Seizure TECHNIQUE: CT of the head was performed without contrast according tostandard protocol. FINDINGS: Comparison is made with a study from 13 August 2015. No acute intra- or extra-axial fluid collections are identified.Hyperattenuation along the anterior left frontal lobe represents Compt[place]atter. The ventricles are of normal size, shape, and morphology. Thebasilar cisterns are patent. No mass effect or midline shift is seen. The garcia-white matter differentiation is normal.Bilateral frontal approach deep brain stimulator leads terminating in thesubthalamic region are unchanged in position. The visualized portions ofthe orbits, paranasal sinuses, and mastoids appear normal. No acute fracture is identified. IMPRESSION IMPRESSION: 1. No acute intracranial process. Preliminary findings were relayed to Dr. Walton at 11:42 PM on October2015 by Boo Mustafa. This report was electronically signed by LEOLA SCRUGGS M.D. on 11/04/20156:35 AM . Ignacio Walton MD CT ORDERABLES * (ABNORMAL) URINALYSIS REFLEX TO MICROSCOPIC NO CULTURE (11/03/2015 10:36 PM [facility]) Only the most recent of2 resultswithin the time period is included. Color UA Yellow Straw, Yellow, Colorless, Light Yellow [facility] Clarity UA Hazy(A) Clear [facility] Specific [place] UA 1.034(H) 1.001 - 1.030 [facility] pH UA 5.5 5.0 - 8.0 [facility] Protein UA 30(A) <=20 mg/dL [facility] Glucose UA Negative Negative mg/dL [facility] Ketone UA Negative Negative mg/dL [facility] Bilirubin UA Negative Negative mg/dL [facility] Blood UA Negative Negative [facility] Nitrite UA Negative Negative [facility] Leukocyte Esterase Negative Negative [facility] Urobilinogen UA 2.0 <2.0 mg/dL [facility] RBC UA 6 0 - 8 /HPF [facility] WBC UA 5(H) 0 - 2 /HPF [facility] Squamous Epithelial Cells UA 59(H) 0 - 1 /HPF [facility] Mucus UA Many(A) None /LPF [facility] Urine specimen (specimen) 11/03/2015 10:36 PM [facility] 11/03/2015 10:36 PM [facility] Ignacio Walton MD LAB - URINALYSIS ORD ERABLES [facility] [address] [phone] * CT GUIDED STEREO LOCALIZATION (08/13/2015 4:46 AM CDT) Only the most recent of4 resultswithin the time period is included. Anatomical Region Laterality Modality Breast Other Impressions 08/13/2015 9:10 AM CDT IMPRESSION: 1. Interval right frontal abigail hole creation for a right frontal approach deep brain stimulator lead placement terminating in the region of the right inferior thalamus. Minimal pneumocephalus. Left frontal approach deep brain stimulator lead is unchanged and terminates in the region of the left inferior thalamus. This report was electronically signed by SAMEER CORCORAN M.D. on 08/13/2015 9:10 AM . Narrative 08/13/2015 9:10 AM CDT EXAMINATION: Computed tomography (CT) of the head without contrast HISTORY: Evaluate deep brain stimulator leads. TECHNIQUE: CT of the head was performed without contrast according to stereotactic protocol. FINDINGS: Comparison is made to prior head CT from 08/12/2015. There has been interval right frontal abigail hole creation for placement of a right frontal approach deep brain stimulator lead terminating in the region of the right inferior thalamus. Minimal pneumocephalus overlies the right frontal lobe. A left frontal approach deep brain stimulator lead is unchanged and terminates in the region of the left inferior thalamus. No acute intra-or extra-axial fluid collections are identified. No mass effect or midline shift. The ventricles are normal in size. The basilar cisterns are patent. The paranasal sinuses and mastoid air cells are clear. The orbits appear grossly normal. Mild soft tissue swelling overlies the calvarium. Procedure Note Sameer Corcoran MD - 01/11/2018 EXAMINATION: Computed tomography (CT) of the head without contrast HISTORY: Evaluate deep brain stimulator leads. TECHNIQUE: CT of the head was performed without contrast according tostereotactic protocol. FINDINGS: Comparison is made to prior head CT from 08/12/2015. There has been interval right frontal abigail hole creation for placement ofa right frontal approach deep brain stimulator lead terminating in theregion of the right inferior thalamus. Minimal pneumocephalus overlies theright frontal lobe. A left frontal approach deep brain stimulator lead is unchanged and terminates in theregion of the left inferior thalamus. No acute intra-or extra-axial fluidcollections are identified. No mass effect or midline shift. Theventricles are normal in size. The basilar cisterns are patent. The paranasal sinuses and mastoid air cells areclear. The orbits appear grossly normal. Mild soft tissue swellingoverlies the calvarium. IMPRESSION IMPRESSION: 1. Interval right frontal abigail hole creation for a right frontal approachdeep brain stimulator lead placement terminating in the region of theright inferior thalamus. Minimal pneumocephalus. Left frontal approachdeep brain stimulator lead is unchanged and terminates in the region of the left inferior thalamus. This report was electronically signed by SAMEER CORCORAN M.D. on 08/13/20159:10 AM . Severiano Esteban MD CT ORDERABLES * XR SKULL 3VW OR LESS (08/12/2015 3:43 PM CDT) Only the most recent of2 resultswithin the time period is included. Anatomical Region Laterality Modality Head Other Impressions 08/12/2015 4:42 PM CDT Findings/impression: There is interval addition of a right-sided lead. Intact bilateral frontoparietal approach deep brain stimulator leads terminate terminates to the right and left of midline. The calvarium is otherwise intact. The visualized sinuses are unremarkable. Reported dictated by Tal Woodall MD (resident services coordinator). This report was approved by Tal Woodall M.D. on 08/12/2015 4:35 PM . I, Dr. SHARITA CAMPOS M.D. have personally reviewed and interpreted this examination/study. This report was electronically signed by SHARITA CAMPOS M.D. on 08/12/2015 4:42 PM . Narrative 08/12/2015 4:42 PM CDT Exam: Skull radiograph, 2 views Date: 08/12/2015 3:43 PM History: Status post deep brain simulator leads Comparison: Prior skull radiograph dated 12/31/2014 Procedure Note Sharita Campos MD - 01/11/2018 Exam: Skull radiograph, 2 views Date: 08/12/2015 3:43 PM History: Status post deep brain simulator leads Comparison: Prior skull radiograph dated 12/31/2014 IMPRESSION Findings/impression: There is interval addition of a right-sided lead. Intact bilateralfrontoparietal approach deep brain stimulator leads terminate terminatesto the right and left of midline. The calvarium is otherwise intact. Thevisualized sinuses are unremarkable. Reported dictated by Tal Woodall MD (resident services coordinator). This report was approved by Tal Woodall M.D. on 08/12/2015 4:35PM . Dr. SHARITA Turcios M.D. have personally reviewed and interpreted thisexamination/study. This report was electronically signed by SHARIAT CAMPOS M.D. on08/12/2015 4:42 PM . Severiano Esteban MD DIAGNOSTIC IMAGING ORDERABLES * XR NECK SOFT TISSUE (08/12/2015 3:43 PM CDT) Only the most recent of2 resultswithin the time period is included. Anatomical Region Laterality Modality Head Other Impressions 08/12/2015 4:42 PM CDT IMPRESSION: Intact deep brain stimulator leads within the neck This report was approved by Tal Woodall M.D. on 08/12/2015 4:[address] SHARITA Turcios M.D. have personally reviewed and interpreted this examination/study. This report was electronically signed by SHAIRTA CAMPOS M.D. on 08/12/2015 4:42 PM . Narrative 08/12/2015 4:42 PM CDT EXAMINATION: Neck soft tissue radiograph radiograph 2 views HISTORY: Status post left deep brain with replacement COMPARISON: Prior neck radiograph dated 01/05/2015 FINDINGS: A left upper chest deep brain stimulator generator is again noted with interval addition of an intact lead that extends superiorly within the right neck. Previously noted left lead is intact. No prevertebral soft tissue swelling is identified. Procedure Note Sharita Campos MD - 01/11/2018 EXAMINATION: Neck soft tissue radiograph radiograph 2 views HISTORY: Status post left deep brain with replacement COMPARISON: Prior neck radiograph dated 01/05/2015 FINDINGS: A left upper chest deep brain stimulator generator is againnoted with interval addition of an intact lead that extends superiorlywithin the right neck. Previously noted left lead is intact. No prevertebral soft tissue swelling is identified. IMPRESSION IMPRESSION: Intact deep brain stimulator leads within the neck This report was approved by Tal Woodall M.D. on 08/12/2015 4:33PM . I, Dr. SHARITA CAMPOS M.D. have personally reviewed and interpreted thisexamination/study. This report was electronically signed by SHARITA CAMPOS M.D. on08/12/2015 4:42 PM . Severiano Esteban MD DIAGNOSTIC IMAGING ORDERABLES * FL OARM SURGERY LESS 60 MIN (08/12/2015 1:30 PM CDT) Only the most recent of2 resultswithin the time period is included. Anatomical Region Laterality Modality Other Narrative 08/12/2015 4:03 PM CDT Fluoroscopy was used for this exam. Please see the Operative report. Procedure Note Amber Baird MD - 01/11/2018 Fluoroscopy was used for this exam. Please see the Operative report. Severiano Esteban MD FLUOROSCOPY ORDERAB LES * (ABNORMAL) CULTURE URINE (01/01/2015 4:00 AM CDT) Culture Urine ESCHERICHIA COLI(A) [facility] Comment:Greater than 1,000,0 00 CFU/ML Escherichia Coli Urine specimen (specimen) (Urine, Elaine Cath) 01/01/2015 4:00 AM CDT 01/01/2015 5:40 AM CDT Narrative [facility] - 01/04/2015 5:45 AM CDT Specimen Type->Urine Organism Antibiotic Method Susceptibility Escherichia coli Amikacin SUSCEPTIBILITY <=2: Sensitive Escherichia coli Ampicillin SUSCEPTIBILITY 8: Sensitive Escherichia coli Ampicillin-sulbactam SUSCEPTIBILITY 4: Sensitive Escherichia coli Cefazolin SUSCEPTIBILITY <=4: Sensitive Escherichia coli Cefepime SUSCEPTIBILITY <=1: Sensitive Escherichia coli Ceftazidime SUSCEPTIBILITY <=1: Sensitive Escherichia coli Ceftriaxone SUSCEPTIBILITY <=1: Sensitive Escherichia coli Gentamicin SUSCEPTIBILITY <=1: Sensitive Escherichia coli Imipenem SUSCEPTIBILITY <=0.25: Sensitive Escherichia coli Levofloxacin SUSCEPTIBILITY <=0.12: Sensitive Escherichia coli Nitrofurantoin SUSCEPTIBILITY <=16: Sensitive Escherichia coli Piperacillin-tazobactam SUSCEPTIBILIT Y <=4: Sensitive Escherichia coli Tobramycin SUSCEPTIBILITY <=1: Sensitive Escherichia coli Trimethoprim-sulfamethoxazole SUSCEPT IBILITY <=20: Sensitive Escherichia coli Extended-Spectrum Beta-Lactamase SUSC EPTIBILITY Neg: - Severiano Esteban MD LAB - MICROBIOLOGY ORDERABLES [address] [phone] * MRI BRAIN WWO CONTRAST (07/23/2014 5:39 PM CDT) Anatomical Region Laterality Modality Head Other Impressions 07/23/2014 6:18 PM CDT IMPRESSION: 1. No intracranial mass lesion or other intracranial abnormality identified. This report was electronically signed by SAMEER CORCORAN M.D. on 07/23/2014 6:18 PM . Narrative 07/23/2014 6:18 PM CDT EXAMINATION: Magnetic resonance imaging (MRI) of the brain without and with contrast HISTORY: Essential tremor, for deep brain stimulator placement. TECHNIQUE: MRI of the brain was performed prior to and following the uneventful administration of Gadavist 7 mL intravenous gadolinium contrast according to deep brain stimulator protocol. FINDINGS: No prior study is available for comparison. Ventricles are of normal size, shape, and morphology. No mass effect or midline shift. The substantia nigra appears normal. No enhancing lesions are identified. The corpus callosum and sella appear normal. The posterior fossa, brainstem, and craniocervical junction appear normal. The visualized portions of the orbits, mastoids and paranasal sinuses appear normal. Normal flow voids are demonstrated in the carotid arteries and basilar artery. The calvarium and visualized cervical spine appear normal. Procedure Note Sameer Corcoran MD - 03/31/2018 EXAMINATION: Magnetic resonance imaging (MRI) of the brain without andwith contrast HISTORY: Essential tremor, for deep brain stimulator placement. TECHNIQUE: MRI of the brain was performed prior to and following theuneventful administration of Gadavist 7 mL intravenous gadolinium contrastaccording to deep brain stimulator protocol. FINDINGS: No prior study is available for comparison. Ventricles are of normal size, shape, and morphology. No mass effect ormidline shift. The substantia nigra appears normal. No enhancing lesionsare identified. The corpus callosum and sella appear normal. The posteriorfossa, brainstem, and craniocervical junction appear normal. The visualized portions of the orbits, mastoids and paranasal sinusesappear normal. Normal flow voids are demonstrated in the carotid arteriesand basilar artery. The calvarium and visualized cervical spine appearnormal. IMPRESSION IMPRESSION: 1. No intracranial mass lesion or other intracranial abnormalityidentified. This report was electronically signed by SAMEER CORCORAN M.D. on 07/23/20146:18 PM . Jared Casey MD MR ORDERABLES * (ABNORMAL) CREATININE BLOOD - POCT (IP) [facility] (07/23/2014) Creatinine POCT 1.09 0.3 - 1.3 mg/dL [facility] eGFR POCT 59(A) 60 ml/min [facility] 07/23/2014 Jared Casey MD LAB - POINT OF CARE ORDERABLES [facility] * PATHOLOGY TISSUE FOR DERMATOLOGY (01/14/2014 12:00 AM CDT) Result CASE: [id number] PATIENT: MARQUITA GOULD PATHOLOGIC DIAGNOSIS: A. Post neck: TINEA VERSICOLOR B. Right thigh: TINEA VERSICOLOR CLINICAL DATA: A-B: Tinea vs urticaria multiforme vs EAC vs SCLE vs MF vs drug eruption. GROSS DESCRIPTION: A: Received is one formalin filled container labeled with the patient's name and designated post neck. The specimen consists of a punch biopsy measuring [id number]. The specimen is bisected and submitted in 1 cassette. Jar 0. B: Received is one formalin filled container labeled with the patient's name and designated upper right thigh. The specimen consists of a punch biopsy measuring [id number]. Jar 0. MICROSCOPIC DESCRIPTION: SPECIMEN A: In the stratum corneum, there are numerous basophilic hyphae and spores that resemble spaghetti and meatballs . SPECIMEN B: In the stratum corneum, there are numerous basophilic hyphae and spores that resemble spaghetti and meatballs . Electronicall y signed out by Farhana Gilliam M.D. 01/18/2014 2:15:32PM [facility] Comment: Performed at: Dermatopathology Laboratory [facility] Department of Dermatology [address] [place] [address], 5[address] [place] [address] Phone number: [phone] FAX: [phone] Skin (tissue) specimen (specimen) 01/14/2014 01/15/2014 Narrative [facility] - 01/18/2014 2:15 PM CDT Preferred Lab:->Derm-Path Specimen A: Type->Punch Site->post neck History->10 yrs slightly scaly BESS negative very itchy vaguely annular pink plaque on entire back, macules chest, arms, thighs Impression->tinea vs urticaria multiforme vs EAC vs SCLE VS MF vs drug eruption Check Margins:->N/A Prior Biopsy->N/A Specimen B: Type->Punch Site->right thigh History->same Impression->same Check Margins:->N/A Prior Biopsy->N/A Eden Serrano MD LAB - PATHOLOGY/CY TOLOGY ORDERABLES [facility] [address] [place] [address]. [address] [place] [address], [facility] [phone] Care Teams Surgery Manager Relationship Specialty Start Date End Date Hailey Sharp MD PCP - General 06/18/19
--- OUTSIDE RECORDS SUMMARY | 2024-12-04 16:22 | XMS_ITS | Clinical Summary ---
Author Organization [facility] Address [address] [place] [address] Care Team Providers Care Biofuels Production Manager Name Role Phone Hailey Sharp MD Primary Care Provider [phone] Source Comments [facility],non-owned Affiliates and Associated Physician Practices is amultiple site organization consisting of ambulatory clinics and hospital sitesin [place], [place] and [place]. This disclosure is being madepursuant to the Care Everywhere program and may not contain all informatio navailable regarding this patient. Last updated 18.[facility] Allergies Active Allergy Reactions Criticality Noted Date Comments Adhesive Sensitivity Skin Reactions Low 09/01/2015 Baclofen Dizziness Low 03/16/2022 Bupropion Nausea and/or Vomiting Low 03/16/2022 Latex Rash Medium 12/24/2014 Needs latex and powder free gloves., Needs latex and powder free gloves. Naltrexone Nausea and/or Vomiting Low 03/16/2022 Penicillin G Nausea and/or Vomiting Low 01/14/2014 Skin Adhesives Urticaria Medium 05/06/2024 Medications * Be aware that medications may not be up to date on this document. Alwaysverify current medications with the patient. Medication Sig Dispensed Refills Start Date End Date Status celecoxib (CELEBREX) 50 MG capsule Take 2 (two) capsules by mouth once daily Active CONTRAVE 8-90 MG tablet TK 1 T PO BID 09/29/2019 Active Nurtec [address] 1 TABLET ON OR UNDER THE TONGUE ONCE A DAY NEEDED FOR ACUTE/SEVERE MIGRAINE Active escitalopram (Lexapro) 20 MG tablet Take 1 (one) tablet by mouth once daily 04/29/2024 Active clobetasol (Temovate) 0.05 % cream 04/21/2024 Active eszopiclone (Lunesta) 2 MG tablet TAKE 1 TABLET BY MOUTH DAILY AT BEDTIME NEEDED FOR INSOMNIA 02/18/2024 Active zolpidem CR (Ambien Cr) 6.25 MG tablet TAKE 1 TABLET BY MOUTH DAILY AT BEDTIME NEEDED FOR INSOMNIA 01/30/2024 Active Active Problems Problem Noted Date Diagnosed Date Migraine without status migrainosus, not intract able 03/27/2018 Presence of other specified functional implants 01/13/2015 S/P deep brain stimulator placement 01/13/2015 Essential tremor 12/31/2014 Tremor, essential 06/01/2014 Family History Medical History Relation Name Comments Nervous Disorder Maternal Grandmother Matthew mor Nervous Disorder Mother Tremor Relation Name Status Comments Maternal Grandmother Mother Social History Tobacco Use Types Packs/Day Years [...] Mass Index 26.19 05/06/2024 7:50 AM CDT Plan of Treatment Upcoming Encounters Date Type Department Care Team (Late st Contact Info) Description 05/06/2025 11:30 AM CDT Procedure visit [facility] - Neurology [address] [place] [id number] Jared Casey MD [address] [facility] [address] [facility] [place] [address] Health Maintenance Due Date Last Done Comments COLOGUARD (AGES 45-75) - COL ON CA SCREENING 1971 COLON MONITORING 1971 COLONOSCOPY - COLON CA SCREENING 1971 CT COLONOGRAPHY - COLON CA SCREENING 1971 Colorectal Cancer Screening 1971 FIT - COLON CA SCREENING 1971 FLEX SIG - COLON CA SCREENING 1971 LIPID TESTING 1971 MAMMOGRAM 1971 PAP SMEAR 1971 HIV SCREENING 1986 HEPATITIS C SCREENING 03/31/1989 DTAP/TDAP/TD VACCINES (1 - Tdap) 1990 HEPATITIS B VACCINE (1 of 3 - 19+ 3-dose series) 1990 PNEUMOCOCCAL VACCINE 50+ (1 of 1 - PCV) 2021 ZOSTER VACCINE (1 of 2) 2021 COVID-19 VACCINE (3 - 2023-2 5 season) 2024 05/19/2021, 04/27/2021 INFLUENZA VACCINE (#1) 2024 DEPRESSION SCREENING 10/14/2024 HIB VACCINE Aged Out No longer eligi ble based on patient's age to complete this topic HPV VACCINE Aged Out No longer eligi ble based on patient's age to complete this topic MENINGOCOCCAL (Group B) VACCINE Aged Out No longer eligible b ased on patient's age to complete this topic MENINGOCOCCAL VACCINE Aged Out No delon filipe eligible based on patient's age to complete this topic PNEUMOCOCCAL VACCINE Aged Out No long er eligible based on patient's age to complete this topic Medical Devices Implanted Type Area Pharmaceutical Engineer Device Identifier Shelf Expiration Date Model / Serial / Lot Vercise M8 Adapter 15cm Implanted:Qty: 2 on 07/10/2019 by Severiano Esteban MD at [facility] Left: Chest Wall 02/15/2020 [id number] / / Kit Gen Vercise Gevia g - [id number] Implanted:Qty: 1 on 07/10/2019 by Severiano Esteban MD at [facility] Left: Chest Wall [employer] 04/06/2021 [id number] / [id number] / Care Teams Biofuels Production Manager Relationship Specialty Start Date End Date Hailey Sharp MD PCP - General 06/18/19
--- OUTSIDE RECORDS SUMMARY | 2024-12-04 16:22 | XMS_ITS | Referral Summary ---
Author Organization [facility] Address [address] [place] [address] Care Team Providers Care Legislative Aide Name Role Phone Antione Wise MD Primary Care Provi cherie Encounters Date Type Department Care Team Description 11/06/2024 Orders Only [facility] Orthopedic and Sports Medicine [address] [place] [address] [phone] Blaise See MD Juvenile osteochondrosis of tibia tubercle, left leg (Primary Dx); Acute internal derangement of left knee 11/06/2024 9:45 AM BATCH MIXER Office Visit [facility] Orthopedic and Sports Medicine [address] [place] [phone] Blaise See MD Juvenile osteochondrosis of tibia tubercle, left leg (Primary Dx) 10/09/2024 3:23 PM BATCH MIXER - 10/09/2024 11:59 PM BATCH MIXER Hospital Encounter [facility] Orthopedics and Sports Medicine [address] [place] [address] [place] [phone] Discharge Disposition: Discharge to home or self care 10/09/2024 7:42 AM BATCH MIXER - 10/09/2024 11:59 PM BATCH MIXER Hospital Encounter [facility] Orthopedics and Sports Medicine [address] [place] [phone] Discharge Disposition: Discharge to home or self care 10/09/2024 2:45 PM BATCH MIXER Office Visit [facility] Orthopedics and Sports Medicine [address] [facility] [address] [place] [address] Liliya Rosa PA Acute internal derangement of left knee (Primary Dx) 09/09/2024 Ancillary Procedure [facility] Outside Films from Last 3 Months Allergies Active Allergy Reactions Criticality Noted Date Comments Adhesive Rash Medium 09/01/2015 Baclofen Dizziness Low 03/16/2022 Bupropion Nausea And Vomiting Low 03/16/2022 Bupropion Hcl Nausea & Vomiting Low 03/16/2022 Latex Rash Medium 12/24/2014 Needs latex and powder free gloves., Needs latex and powder free gloves. Naltrexone Nausea & Vomiting,Na usea And Vomiting Low 03/16/2022 Penicillin Nausea & Vomiting Low 11/16/2024 Penicillins Tissue Adhesive Itching Low 03/16/2022 Medications ibuprofen (ADVIL) 200 mg tablet take 2 tablet by oral route every 6 hours as needed with food 0 0 4 Active eletriptan (RELPAX) 40 mg tablet take 1 tablet by oral route ; if headache returns, the dose may be repeated after 2 hours, but nomore than two doses should be given within a 24-hour period. 9 3 4 Active celecoxib (CeleBREX) 100 mg capsule Take 1 capsule (100 mg total) by mouth 2 (two) times a day Active naltrexone-bup ropion 8-90 mg tablet extended release Take by mouth 2 (two) times a day Active traZODone (DESYREL) 100 mg tablet Take 1 tablet (100 mg total) by mouth nightly Active fluticasone propionate (FLONASE) 50 mcg/actuation nasal sprayIndicatio ns:Facial injury, initial encounter Administer 2 sprays into each nostril daily 16 g 11 2 Active benzonatate (TESSALON) 200 mg capsule 5 Active escitalopram (LEXAPRO) 20 mg tablet Take 1 tablet (20 mg total) by mouth daily Active Wegovy 0.5 mg/0.5 mL auto-injector INJECT 0.5 SUBCUTANEOUSLY ONCE WEEKLY 5 Active Active Problems Problem Noted Date Diagnosed Date Injury of face 03/16/2022 Assessment & Plan (03/16/2022 2:48 PM CDT): Anterior Maxillary fracture Avoid nose blowing, sniff in and spit out Flonase 2 sprays into each nostril while looking down over the sink, do not sniff in or blow nose after use for at least 30 minutes daily Referral to Oral Maxillary facial surgery Closed fracture of maxillary sinus 03/16/2022 Assessment & Plan (03/16/2022 2:48 PM CDT): Anterior Maxillary fracture Avoid nose blowing, sniff in and spit out Flonase 2 sprays into each nostril while looking down over the sink, do not sniff in or blow nose after use for at least 30 minutes daily Referral to Oral Maxillary facial surgery Migraine without status migrainosus, not intract able 03/27/2018 Presence of other specified functional implants 01/13/2015 S/P deep brain stimulator placement 01/13/2015 Spasmodic torticollis 07/14/2014 Overview (01/19/2017): Spasmodic torticollis Essential tremor 05/13/2014 Overview (01/19/2017): Essential tremor Headache 05/13/2014 Overview (01/19/2017): Headache Depression 05/13/2014 Overview (01/19/2017): Depression Anxiety 01/08/2014 Overview (01/17/2017): Anxiety Immunizations Immunization Administration Dates Next Due Influenza, Unspecified 07/23/2023(Deferred: Jessica ent Refused) Pfizer SARS-CoV-2 Monovalent Vaccination (12+ Yrs) PURPLE 06/02/2021,05/19/2021,05/13/2021,2020 TD Preservative Free 10/14/2007 Tetanus toxoid, adsorbed 03/23/2019 Social History Tobacco Use Types Packs/Day Years Used Date Smoking Tobacco: Never Smokeless Tobacco: Never Tobacco Cessation:Counseling Given: Not Answered Alcohol Use Standard Drinks/Week Comments No 0 (1 standard drink = 0.6 oz pur e alcohol) Personal Safety Answer Date Recorded Getting School Help Needed Denies 10/19 Comments No Sex and Gender Information Value Date Recorded Sex Assigned at Not on file Legal Sex Female 2:14 AM BATCH MIXER Gender Identity Not on file Sexual Orientation Not on file Last Filed Vital Signs Vital Sign Reading Time Taken Comments Blood Pressure 112/72 11/06/2024 10:20 AM BATCH MIXER Pulse 75 11/06/2024 10:20 AM BATCH MIXER Temperature 37.2 C (99 F) 12/03/2022 7:44 PM BATCH MIXER Respiratory Rate 21 12/03/2022 11:20 PM BATCH MIXER Oxygen Saturation 96% 12/03/2022 11:20 PM BATCH MIXER Inhaled Oxygen Concentration - - Weight 71.8 kg (158 lb 4.8 oz) 11/06/2024 10:20 AM BATCH MIXER Height 162.6 cm (5' 4 ) 11/06/2024 10:20 AM BATCH MIXER Body Mass Index 27.17 11/06/2024 10:20 AM BATCH MIXER Plan of Treatment Not on file Procedures Procedure Name Priority Date/Time Associated Diagnosis Comments XR KNEE LEFT 4 OR MORE VIEWS Schedule Routine, Read Routine (OP Routine) 10/09/2024 3:25 PM BATCH MIXER Acute internal derangement of left knee XR PELVIS 1 OR 2 VIEWS Schedule Routine, Read Routine (OP Routine) 10/09/2024 3:24 PM BATCH MIXER Acute internal derangement of left knee TN ARTHROCENTESIS ASPIR&/INJ MAJOR JT/BURSA W/O US Routine 10/09/2024 2:45 PM BATCH MIXER Acute internal derangement of left knee CT BODY OUTSIDE REFERENCE Routine 09/09/2024 12:00 AM BATCH MIXER from Last 3 Months Results * XR Knee Left 4+ View (10/09/2024 3:25 PM BATCH MIXER) Anatomical Region Laterality Modality Lower Extremities, Knee Left Digital Radiography Narrative 10/10/2024 7:21 AM BATCH MIXER Weightbearing views of the left knee are reviewed and demonstrate no acute fractures or destructive osseous lesions. Mild tricompartmental degenerative changes present including mild joint space narrowing and small osteophyte of the trochela Liliya RUBIO IMG XR PROCEDURES Final Result * XR Pelvis 1 or 2 Views (10/09/2024 3:24 PM BATCH MIXER) Anatomical Region Laterality Modality Body, Pelvis N/A Digital Radiogra phy Narrative 10/10/2024 7:24 AM BATCH MIXER X-ray of the pelvis viewed and interpreted. There is no evidence of fracture, subluxation, or bony abnormality. Mild degenerative changes of the bilateral femoral acetabular joints. Well demarcated pelvic calcifications also appreciated. Result [facility] Liliya RUBIO IMG XR PROCEDURES Final Result * TN ARTHROCENTESIS ASPIR&/INJ MAJOR JT/BURSA W/O US (10/09/2024 2:45 PM BATCH MIXER) Narrative Blaise See MD - 10/09/2024 2:45 PM BATCH MIXER Liliya Rosa PA 10/10/2024 7:26 AM Large Joint (Hip, Knee, Shoulder) Injection: L knee Performed by: Liliya Rosa PA Authorized by: Liliya Rosa PA Large Joint Injection/Aspiration: Consent Given by: Patient Site marked: the procedure site was marked Verbal consent obtained: Yes Supporting Documentation: Indications: Pain Procedure Details: Location: Knee Site: L knee Prep: patient was prepped and draped in usual sterile fashion Needle Size: 22 G Approach: Anterolateral Ultrasound guided: No Fluroscopic guidance: No Medications: 3 mL lidocaine 20 mg/mL (2 %); 80 mg methylPREDNISolone acetate 80 mg/mL Patient tolerance: Patient tolerated the procedure well with no immediate complications Result [facility] Liliya RUBIO IN CLINIC/BEDSIDE ORDER KERRIE Final Result * CT Body Outside Reference (09/09/2024 12:00 AM BATCH MIXER) Narrative [facility] - 10/09/2024 2:34 PM BATCH MIXER This order has been auto-finalized and does not contain a result. us Provider Transcribed Order IMG CT PROCEDURES Fin al Result [facility] from Last 3 Months [facility] Care Teams Legislative Aide Relationship Specialty Start Date End Date Antione Wise MD [address] [facility] [address] [place] [address] PCP - General Family Practice 11/16/24
--- OUTSIDE RECORDS SUMMARY | 2024-12-04 16:22 | XMS_ITS | Referral Summary ---
Author Organization [facility] Address [address] [address] Care Team Providers Care Sink Maker Name Role Phone Hailey Sharp MD Primary Care Provider [phone] Source Comments [facility],non-owned Affiliates and Associated Physician Practices is amultiple site organization consisting of ambulatory clinics and hospital sitesin [place], [place], [place] and [place]. This disclosure is being madepursuant to the Care Everywhere program and may not contain all information available regarding this patient. Last updated 18.[facility] Allergies Active Allergy Reactions Criticality Noted Date [...] Procedure visit [facility] - Neurology [address] [place] [address], [place] [address] Jared Casey MD [address] [place] [address] [place] [address] Medical Devices Implanted Type Area Organ Grinder Device Identifier Shelf Expiration Date Model / Serial / Lot Vercise M8 Adapter 15cm Implanted:Qty: 2 on 07/10/2019 by Severiano Esteban MD at [facility] Left: Chest Wall 02/15/2020 [id number] / / Kit Gen Sandra Copeland Pending Sale To [facility] - [id number] Implanted:Qty: 1 on 07/10/2019 by Severiano Esteban MD at [facility] Left: Chest Wall EZMove Scimed 04/06/2021 [id number] / [id number] / Care Teams Sink Maker Relationship Specialty Start Date End Date Hailey Sharp MD PCP - General 06/18/19
--- OUTSIDE RECORDS SUMMARY | 2024-12-04 16:22 | XMS_ITS | Continuity of Care Document ---
Author Organization [facility] Address [address] [employer] [address] [place] [address] [place] [address] Phone Care Team Providers Care Vp Scientific Name Role Phone Werner Anguiano MD Unavailable Unavailable Advance Directives Directive Yes / No Effective Date File Name No Information Encounters Encounter Description Practice Location Reason(s) For Visit Diagnoses Date Provider Providers Copied on Encounter [facility], [address] [place], [id number], [place] tel:[phone] [facility] No Information Silvio Caldera. [address] [facility] [place], [id number], [place]. tel:[phone] Family History Family Member Type Diagnosis Age At Onset No Information Payers Payer name Insurance type Covered constitution party ID Authoriza tion(s) No Information Social History Type Description Quantity Date Captured Comments Sex Female Smoking Status No Information Chief Complaint And Reason For Visit No Information Plan Of Treatment Date Type Action Status No Information History Of Present Illness Encounter Date Complaint History Of Prese nt Illness No Information Instructions Date Instruction Additional Infor mation No Information Assessments Type Assessment Date No Information
--- OUTSIDE RECORDS SUMMARY | 2024-12-04 16:23 | XMS_ITS | Clinical Summary ---
Author Organization [facility] Address [address] [place] [address] Care Team Providers Care Postdoctoral Research Associate Name Role Phone Antione Wise MD Primary Care Provi cherie Allergies Active Allergy Reactions Criticality Noted Date [...] (01/19/2017): Depression Anxiety 01/08/2014 Overview (01/17/2017): Anxiety Encounters Date Type Department Care Team Description 11/06/2024 9:45 AM MIRROR MACHINE FEEDER Office Visit [facility] Orthopedic and Sports Medicine [address] [place] [address] [phone] Blaise See MD Juvenile osteochondrosis of tibia tubercle, left leg (Primary Dx) 11/06/2024 Orders Only [facility] Orthopedic and Sports Medicine [address] [place] [address] [phone] Blaise See MD Juvenile osteochondrosis of tibia tubercle, left leg (Primary Dx); Acute internal derangement of left knee 10/09/2024 3:23 PM MIRROR MACHINE FEEDER - 10/09/2024 11:59 PM MIRROR MACHINE FEEDER Hospital Encounter [facility] Orthopedics and Sports Medicine [address] [place] [address] [phone] Discharge Disposition: Discharge to home or self care 10/09/2024 2:45 PM MIRROR MACHINE FEEDER Office Visit [facility] Orthopedics and Sports Medicine [address] [place] [address] [phone] Liliya Rosa PA Acute internal derangement of left knee (Primary Dx) 10/09/2024 7:42 AM MIRROR MACHINE FEEDER - 10/09/2024 11:59 PM MIRROR MACHINE FEEDER Hospital Encounter [facility] Orthopedics and Sports Medicine [address] [place] [phone] Discharge Disposition: Discharge to home or self care 09/09/2024 Ancillary Procedure [facility] Outside Films from Last 3 Months Immunizations Immunization Administration Dates Next Due Influenza, Unspecified 07/23/2023(Deferred: Jessica ent Refused) Pfizer SARS-CoV-2 Monovalent Vaccination (12+ Yrs) PURPLE 06/02/2021,05/19/2021,05/13/2021,2020 TD Preservative Free 10/14/2007 Tetanus toxoid, adsorbed 03/23/2019 Surgical History Surgery Date Site/Laterality Comments PARTIAL HYSTERECTOMY partial hysterectomy OTHER SURGICAL HISTORY rt hip injury: rt hip surgery OTHER SURGICAL HISTORY tremor: deep brain stimulator OTHER SURGICAL HISTORY Essential Tremor: neurologist OTHER SURGICAL HISTORY essential tremors: R (12/2014) and L (07/2015) brain stimulator insertion Medical History Medical History Date Comments Malignant neoplasm of cervix (CMS/HCC) (HCC) Cancer, cervical Hx Other Medical rt hip injury; Comments: AA 05/13/2014 - Hx Other Medical Headache, migra ine Depression Depression Hx Other Medical tremor; Comment s: AAW 02/04/2015 - Hx Other Medical Essential Tremo r; Comments: AA 05/13/2014 - Hx Other Medical essential tremo rs; Comments: [facility] 05/13/2014 - Essential tremor Family History Medical History Relation Name Comments Other Brother developement de lay; Brain cancer Maternal Grandmother brain c ancer; Other Maternal Grandmother ET; Other Mother Tremor, essenti al; /ET; Other Sister 2 Alive and well; Relation Name Status Comments Brother Maternal Grandmother Mother Sister 1 Alive Sister 2 Social History Tobacco Use Types Packs/Day Years [...] on file Legal Sex Female 2:14 AM MIRROR MACHINE FEEDER Gender Identity Not on file Sexual Orientation Not on file Obstetrics History Last Filed Vital Signs Vital Sign Reading Time Taken Comments Blood Pressure 112/72 11/06/2024 10:20 AM MIRROR MACHINE FEEDER Pulse 75 11/06/2024 10:20 AM MIRROR MACHINE FEEDER Temperature 37.2 C (99 F) 12/03/2022 7:44 PM MIRROR MACHINE FEEDER Respiratory Rate 21 12/03/2022 11:20 PM MIRROR MACHINE FEEDER Oxygen Saturation 96% 12/03/2022 11:20 PM MIRROR MACHINE FEEDER Inhaled Oxygen Concentration - - Weight 71.8 kg (158 lb 4.8 oz) 11/06/2024 10:20 AM MIRROR MACHINE FEEDER Height 162.6 cm (5' 4 ) 11/06/2024 10:20 AM MIRROR MACHINE FEEDER Body Mass Index 27.17 11/06/2024 10:20 AM MIRROR MACHINE FEEDER Plan of Treatment Health Maintenance Due Date Last Done Comments Breast Cancer Screening-Mammogram 1971 Colon Cancer Screening-Colonoscopy 1971 Depression Screening 1971 Hepatitis C Screening 1971 Hepatitis B Screening 1989 Regular Well Visit/Exam 18-64 1989 DTaP/Tdap/Td Vaccine (1 - Tdap) 03/24/2019 03/23/2019, 10/14/2007 Zoster Vaccine (1 of 2) 2021 Covid-19 Vaccine (5 - season) 2024 06/02/2021, 05/19/2021, 05/13/2021, Additional history exists Influenza Vaccine (#1) 2024 Pneumococcal vaccine <65 Aged Out No longer eligible based on patient's age to complete this topic Procedures Procedure Name Priority Date/Time Associated Diagnosis Comments XR KNEE LEFT 4 OR MORE VIEWS Schedule Routine, Read Routine (OP Routine) 10/09/2024 3:25 PM MIRROR MACHINE FEEDER Acute internal derangement of left knee XR PELVIS 1 OR 2 VIEWS Schedule Routine, Read Routine (OP Routine) 10/09/2024 3:24 PM MIRROR MACHINE FEEDER Acute internal derangement of left knee IN ARTHROCENTESIS ASPIR&/INJ MAJOR JT/BURSA W/O US Routine 10/09/2024 2:45 PM MIRROR MACHINE FEEDER Acute internal derangement of left knee CT BODY OUTSIDE REFERENCE Routine 09/09/2024 12:00 AM MIRROR MACHINE FEEDER from Last 3 Months Results * XR Knee Left 4+ View (10/09/2024 3:25 PM MIRROR MACHINE FEEDER) Anatomical Region Laterality Modality Lower Extremities, Knee Left Digital Radiography Narrative 10/10/2024 7:21 AM MIRROR MACHINE FEEDER Weightbearing views of the left knee are reviewed and demonstrate no acute fractures or destructive osseous lesions. Mild tricompartmental degenerative changes present including mild joint space narrowing and small osteophyte of the trochela Liliya RUBIO IMG XR PROCEDURES Final Result * XR Pelvis 1 or 2 Views (10/09/2024 3:24 PM MIRROR MACHINE FEEDER) Anatomical Region Laterality Modality Body, Pelvis N/A Digital Radiogra phy Narrative 10/10/2024 7:24 AM MIRROR MACHINE FEEDER X-ray of the pelvis viewed and interpreted. There is no evidence of fracture, subluxation, or bony abnormality. Mild degenerative changes of the bilateral femoral acetabular joints. Well demarcated pelvic calcifications also appreciated. Result [facility] Liliya RUBIO IMG XR PROCEDURES Final Result * IN ARTHROCENTESIS ASPIR&/INJ MAJOR JT/BURSA W/O US (10/09/2024 2:45 PM MIRROR MACHINE FEEDER) Narrative Blaise See MD - 10/09/2024 2:45 PM MIRROR MACHINE FEEDER Liliya Rosa PA 10/10/2024 7:26 AM Large [...] procedure well with no immediate complications Result [facility] Liliya RUBIO IN CLINIC/BEDSIDE ORDER KERRIE Final Result * CT Body Outside Reference (09/09/2024 12:00 AM MIRROR MACHINE FEEDER) Narrative [facility] - 10/09/2024 2:34 PM MIRROR MACHINE FEEDER This order has been auto-finalized and does not contain a result. Provider Transcribed Order IMG CT PROCEDURES Fin al Result [facility] from Last 3 Months Insurance [employer] Care Teams Postdoctoral Research Associate Relationship Specialty Start Date End Date Antione Wise MD [address] [facility] [address] [place] [address] PCP - General Family Practice 11/16/24
--- OUTSIDE RECORDS SUMMARY | 2024-12-04 16:23 | XMS_ITS | Clinical Summary ---
Author Organization [facility] Address [address] [place] [address] Phone Care Team Providers Care Offender Job Retention Specialist Name Role Phone Arnie Tee MD Primary Care Provider [phone] Social History Tobacco Use Types Packs/Day Years Used Date Smoking Tobacco: Never Assessed Comments Unknown Sex and Gender Information Value Date Recorded Sex Assigned at Not on file Legal Sex Female 2:31 PM REHABILITATION CLERK Gender Identity Not on file Sexual Orientation Not on file Plan of Treatment Health Maintenance Due Date Last Done Comments Hepatitis C Virus (HCV) Screening 1971 TdaP Immunization 1971 Hepatitis B Immunization (1 of 3 - 19+ 3-dose series) 1990 Pap Smear 1992 Cervical Cancer Screening (CCS) 2001 HPV/Cotest 2001 Colonoscopy 2016 Colorectal Cancer Screening 2016 Cologuard 2021 Immunochemical Fecal Occult Blood 2021 Mammogram 2021 Pneumococcal Immunization (5 0+ years) (1 of 1 - PCV) 2021 Zoster Immunization (1 of 2) 2021 Influenza Immunization (#1) 2024 SARS-COV-2 Immunization (3 - 2023- season) 2024 05/19/2021, 04/27/2021 Respiratory Syncytial Virus (RSV) Immunization (Adult) (1 - 1-dose 75+ series) 2046 DTaP/Tdap/Td Immunization Discontinued 10/14/2007 Meningococcal Immunization (ACWY) Aged Out No longer eligible based on patient's age to complete this topic Pneumococcal Immunization Combined Aged Out No longer eligible based on patient's age to complete this topic Rotavirus Immunization Aged Out No lo nger eligible based on patient's age to complete this topic Insurance Care Teams Offender Job Retention Specialist Relationship Specialty Start Date End Date Arnie Tee MD [address] [place] [address] PCP - General Internal Medicine 08/27/18
== END 2024-12-04 16:18 | disposition home or self-care (01) ==
LOC: ANHIMG 16:21
PROVIDERS: Visit Provider Physician Assistant
DX: M47.816 Spondylosis without myelopathy or radiculopathy, lumbar region (principal); R25.9 Unspecified abnormal involuntary movements
CPT/HCPCS: 72131

== ENCOUNTER 2025-01-30 10:13 | Outpatient (CLI) | payer OTHER, SELFPAY ==
--- OUTSIDE RECORDS SUMMARY | 2025-01-29 15:12 | XMS_ITS | Clinical Summary ---
Author Organization [facility] Address [address] [place] [address] Phone Care Team Providers Care X Ray Technician Name Role Phone Arnie Tee MD Primary Care Provider [phone] Social History Tobacco Use Types Packs/Day Years Used Date Smoking Tobacco: Never Assessed Comments Unknown Sex and Gender Information Value Date Recorded Sex Assigned at Not on file Legal Sex Female 2:31 PM JEWELRY DRILLING MACHINE OPERATOR Gender Identity Not on file Sexual Orientation Not on file Plan of Treatment Health Maintenance Due Date Last Done Comments Hepatitis C Virus (HCV) Screening 1971 Mammogram 1971 TdaP Immunization 1971 Hepatitis B Immunization (1 of 3 - 19+ 3-dose series) 1990 Pap Smear 1992 Cervical Cancer Screening (CCS) 2001 HPV/Cotest 2001 Colonoscopy 2016 Colorectal Cancer Screening 2016 Cologuard 2021 Immunochemical Fecal Occult Blood 2021 Pneumococcal Immunization (5 0+ years) (1 [...] patient's age to complete this topic Insurance CIGNA CIGNA Care Teams X Ray Technician Relationship Specialty Start Date End Date Arnie Tee MD [address] [place] [phone] PCP - General Internal Medicine 08/27/18
--- OUTSIDE RECORDS SUMMARY | 2025-01-29 15:12 | XMS_ITS | Referral Summary ---
Author Organization [facility] Address 1 [place] [address] Care Team Providers Care Ampoule Filler Name Role Phone Antione Wise MD Primary Care Provi cherie Encounters Date Type Department Care Team Description 11/06/2024 Orders Only [facility] Orthopedic and Sports Medicine [address] [place] [phone] Blaise See MD Juvenile osteochondrosis of tibia tubercle, left leg (Primary Dx); Acute internal derangement of left knee 11/06/2024 9:45 AM SENIOR SEARCH MARKETING ANALYST Office Visit [facility] Orthopedic and Sports Medicine [address] [place] [phone] Blaise See MD Juvenile osteochondrosis of tibia tubercle, left leg (Primary Dx) from Last 3 Months Allergies Active Allergy [...] on file Legal Sex Female 2:14 AM SENIOR SEARCH MARKETING ANALYST Gender Identity Not on file Sexual Orientation Not on file Last Filed Vital Signs Vital Sign Reading Time Taken Comments Blood Pressure 112/72 11/06/2024 10:20 AM SENIOR SEARCH MARKETING ANALYST Pulse 75 11/06/2024 10:20 AM SENIOR SEARCH MARKETING ANALYST Temperature 37.2 C (99 F) 12/03/2022 7:44 PM SENIOR SEARCH MARKETING ANALYST Respiratory Rate 21 12/03/2022 11:20 PM SENIOR SEARCH MARKETING ANALYST Oxygen Saturation 96% 12/03/2022 11:20 PM SENIOR SEARCH MARKETING ANALYST Inhaled Oxygen Concentration - - Weight 71.8 kg (158 lb 4.8 oz) 11/06/2024 10:20 AM SENIOR SEARCH MARKETING ANALYST Height 162.6 cm (5' 4 ) 11/06/2024 10:20 AM SENIOR SEARCH MARKETING ANALYST Body Mass Index 27.17 11/06/2024 10:20 AM SENIOR SEARCH MARKETING ANALYST Plan of Treatment Not on file Insurance IRIS ALLEGIANCE Care Teams Ampoule Filler Relationship Specialty Start Date End Date Antione Wise MD [address] [address] PCP - General Family Practice 11/16/24
--- OUTSIDE RECORDS SUMMARY | 2025-01-29 15:12 | XMS_ITS | Encounter Summary ---
Author Organization [facility] Address [address] [place] [address] Care Team Providers Care Head Of Mathematics Name Role Phone Hailey Sharp MD Primary Care Provider [phone] Encounter Details Date Type Department Care Team (Late st Contact Info) Description 07/14/2019 Telephone [facility] Neurology [address] [place] [address] Jared Casey MD [address] [phone] Social History Tobacco Use Types Packs/Day Years Used Date Smoking Tobacco: Never Smokeless Tobacco: Never Alcohol Use Standard Drinks/Week Comments No 0 (1 standard drink = 0.6 oz pur e alcohol) Comments No Sex and Gender Information Value Date Recorded Sex Assigned at Not on file Legal Sex Female 5:28 PM SORT LINE Gender Identity Not on file Sexual Orientation Not on file documented as of this encounter Patient Instructions * Patient Instructions* Prasanna Hyde - 07/14/2019 10:11 AM CDT Current Provider name:BOO Reason for call: NEEDS TO [facility] 07/22 DBS APPT, SATURDAY IS PREFERRED Patient Call Back number: [phone] documented in this encounter Plan of Treatment Upcoming Encounters Date Type Department Care Team (Late Contact Info) Description 05/06/2025 11:30 AM CDT Procedure visit [facility] - Neurology [address] [place] [address], [place] [phone] Jared Casey MD [address] [place] [address] [place] [phone] documented as of this encounter Visit Diagnoses Not on filedocumented in this encounter Care Teams Head Of Mathematics Relationship Specialty Start Date End Date Hailey Sharp MD PCP - General 06/18/19 documented as of this encounter
--- OUTSIDE RECORDS SUMMARY | 2025-01-29 15:12 | XMS_ITS | Continuity of Care Document ---
Author Organization [facility] Address [address] [address] [place] [address] Phone Care Team Providers Care Superintendent Pier Name Role Phone Werner Anguiano MD Unavailable Unavailable Advance Directives Directive Yes / No Effective Date File Name No Information Encounters Encounter Description Practice Location Reason(s) For Visit Diagnoses Date Provider Providers Copied on Encounter [facility], [address] [place], [id number], [place] tel:[phone] [facility] No Information Silvio Caldera. [address] [facility] [place], [id number], [place]. tel:[phone] Family History Family Member Type Diagnosis Age At Onset No Information Payers Payer name Insurance type Covered libertarian ID Authoriza tion(s) No Information Social History [...]
--- OUTSIDE RECORDS SUMMARY | 2025-01-29 15:12 | XMS_ITS | Clinical Summary ---
Author Organization [facility] Address [address] [place] [address] Care Team Providers Care Label Maker Name Role Phone Hailey Sharp MD Primary Care Provider [phone] Source Comments [facility],non-select specialty hospital Affiliates and Associated Physician Practices is amultiple site organization consisting of ambulatory clinics and hospital sitesin [place], [place], [place] and [place]. This disclosure is being madepursuant to the Care Everywhere program and may not contain all information available regarding this patient. Last updated 18.[facility] Allergies Active Allergy Reactions Criticality Noted Date Comments Adhesive Sensitivity Skin Reactions Low 09/01/2015 Baclofen Dizziness Low 03/16/2022 Bupropion Nausea and/or Vomiting Low 03/16/2022 Latex Rash Medium 12/24/2014 Needs latex and powder free gloves., Needs latex and powder free gloves. Naltrexone Nausea and/or Vomiting Low 03/16/2022 Penicillin G Nausea and/or Vomiting Low 01/14/2014 Skin Adhesives Urticaria Medium 05/06/2024 Medications * This document contains information received from the source organization and may not represent a complete record from that organization. * Be aware that medications may not be up to date on this document. Alwaysverify current medications with the patient. celecoxib (CELEBREX) 50 MG capsule Take 2 (two) capsules by mouth once daily Active CONTRAVE 8-90 MG tablet TK 1 T PO BID 09/29/2019 Activ e Nurtec [address] 1 TABLET [...] 01/13/2015 Essential tremor 12/31/2014 Tremor, essential 06/01/2014 Encounters Date Type Department Care Team Description 01/12/2025 Telephone [facility] - Neurology [address] [place] [phone] Jared Casey MD Care Management from Last 3 Months Family History Medical History Relation Name Comments [...] on file Legal Sex Female 5:28 PM REMNANTS CUTTER Gender Identity Not on file Sexual Orientation [...] Procedure visit [facility] - Neurology [address] [facility], [place] [phone] Jared Casey MD [facility] [place] [phone] Health Maintenance Due Date Last Done Comments [...] - 2023-2 5 season) 2024 05/19/2021, 04/27/2021 DEPRESSION SCREENING 10/14/2024 INFLUENZA VACCINE (Season Ended) 2025 HIB VACCINE Aged Out No longer eligi ble based on patient's age to complete this topic HPV VACCINE Aged Out No longer eligi ble based on patient's age to complete this topic MENINGOCOCCAL (Group B) VACCINE SHARED DECISION-MAKING Aged Out No longer eligible based on patient's age to complete this topic MENINGOCOCCAL GROUPS A/C/Y/W VACCINE Aged Out No longer eligible b ased on patient's age to complete this topic Medical Devices Implanted Type Area Boiler Fireman Device Identifier Shelf Expiration Date Model / Serial / Lot Vercise M8 Adapter 15cm Implanted:Qty: 2 on 07/10/2019 by Severiano Esteban MD at [facility] Left: Chest Wall 02/15/2020 DB-9218-15 / / Kit Gen Jessicise Copeland g - [id number] Implanted:Qty: 1 on 07/10/2019 by Severiano Esteban MD at [facility] Left: Chest Wall Direct Flow Medical Scientific Scimed 04/06/2021 DB-1200-S / [id number] / Insurance CIGNA Care Teams Label Maker Relationship Specialty Start Date End Date Hailey Sharp MD PCP - General 06/18/19
--- OUTSIDE RECORDS SUMMARY | 2025-01-29 15:12 | XMS_ITS | Clinical Summary ---
Author Organization [facility] Address [address] [place] [address] Care Team Providers Care Snorkelling Instructor Name Role Phone Antione Wise MD Primary [...] Department Care Team Description 11/06/2024 9:45 AM MACHINE TACK PULLER Office Visit [facility] Orthopedic and Sports Medicine [address] [place] [phone] Blaise See MD Juvenile osteochondrosis of tibia tubercle, left leg (Primary Dx) 11/06/2024 Orders Only [facility] Orthopedic and Sports Medicine [address] [place] [phone] Blaise See MD Juvenile osteochondrosis of tibia tubercle, left leg (Primary Dx); Acute internal derangement of left knee from Last 3 Months Immunizations Immunization Administration [...] History Date Comments Malignant neoplasm of cervix (HCC) Cancer, cervical Hx Other Medical rt hip injury; Comments: AAW 05/13/2014 - Hx Other Medical Headache, migra ine Depression Depression Hx Other Medical tremor; Comment s: AAW 02/04/2015 - Hx Other Medical Essential Tremo r; Comments: AAW 05/13/2014 - Hx Other Medical essential tremo rs; Comments: MULTIMEDIA EDUCATIONAL SPECIALIST 05/13/2014 - Essential tremor Family History Medical [...] on file Legal Sex Female 2:14 AM MACHINE TACK PULLER Gender Identity Not on file Sexual Orientation Not on file Obstetrics History Last Filed Vital Signs Vital Sign Reading Time Taken Comments Blood Pressure 112/72 11/06/2024 10:20 AM MACHINE TACK PULLER Pulse 75 11/06/2024 10:20 AM MACHINE TACK PULLER Temperature 37.2 C (99 F) 12/03/2022 7:44 PM MACHINE TACK PULLER Respiratory Rate 21 12/03/2022 11:20 PM MACHINE TACK PULLER Oxygen Saturation 96% 12/03/2022 11:20 PM MACHINE TACK PULLER Inhaled Oxygen Concentration - - Weight 71.8 kg (158 lb 4.8 oz) 11/06/2024 10:20 AM MACHINE TACK PULLER Height 162.6 cm (5' 4 ) 11/06/2024 10:20 AM MACHINE TACK PULLER Body Mass Index 27.17 11/06/2024 10:20 AM MACHINE TACK PULLER Plan of Treatment Health Maintenance Due Date Last Done Comments Breast Cancer Screening-Mammogram 1971 Colon Cancer Screening-Colonoscopy 1971 Depression Screening 1971 Hepatitis C Screening 1971 Hepatitis B Screening 1989 Regular Well Visit/Exam 18-64 1989 DTaP/Tdap/Td Vaccine (1 - Tdap) 03/24/2019 03/23/2019, 10/14/2007 Zoster Vaccine (1 of 2) 2021 Covid-19 Vaccine ( - season) 2024 06/02/2021, 05/19/2021, 05/13/2021, Additional history exists Influenza Vaccine (#1) 2024 Pneumococcal vaccine <65 Aged Out No longer eligible based on patient's age to complete this topic Insurance [facility] Care Teams Snorkelling Instructor Relationship Specialty Start Date End Date Antione Wise MD [address] [address] PCP - General Family Practice 11/16/24
--- OUTSIDE RECORDS SUMMARY | 2025-01-29 15:12 | XMS_ITS | CONTINUITY OF CARE DOCUMENT ---
Author Name akila wilburn Address Unknown Organization [facility] Address [address] [place] [address] [address] [place] [address] Phone [phone] Care Team Providers Care Home Health Administrator Name Role Phone Reggie Krishnamurthy MD Unavailable [phone] ELEANOR ARIAS MD Unavailable [phone] INSURANCE PROVIDERS Payer name Policy type / Coverage type [place] red constitution party ID [facility] [id number] Other [id number]
--- NOTE | 2025-01-30 | ECG_ITS ---
Test Date: 2025-01-30 10:55:07 Measurements Intervals [place] Rate: 74 P: 206 OR: 288 QRS: 44 QRSD: 90 T: 48 QT: 357 QTc: 398 Interpretive Statements ATRIAL FLUTTER/TACHCARDIA WITH NORMAL VENTRICULAR RESPONSE BASELINE ARTIFACT- I, II, III, AVR, AVL, AVF ABNORMAL ECG No previous ECG available for comparison Electronically Signed On 01-30-2025 14:29:36 CDT by David Estrella D.O.
--- OUTSIDE RECORDS SUMMARY | 2025-01-30 10:15 | XMS_ITS | Clinical Summary ---
Author Organization [facility] Address [address] [place] [address] Phone Care Team Providers Care Enologist Name Role Phone Arnie Tee MD Primary Care Provider [phone] Social History Tobacco Use Types Packs/Day Years Used Date Smoking Tobacco: Never Assessed Comments Unknown Sex and Gender Information Value Date Recorded Sex Assigned at Not on file Legal Sex Female 2:31 PM QUARANTINE OFFICER Gender Identity Not on file Sexual Orientation [...] this topic Insurance CIGNA CIGNA Care Teams Enologist Relationship Specialty Start Date End Date Arnie Tee MD [address] [place] [id number] PCP - General Internal Medicine 08/27/18
--- OUTSIDE RECORDS SUMMARY | 2025-01-30 10:15 | XMS_ITS | Continuity of Care Document ---
Author Organization [facility] Address [address] [address] [place] [address] Phone Care Team Providers Care Loan Counselor Name Role Phone Werner Anguiano MD Unavailable Unavailable Advance Directives Directive Yes / No Effective Date File Name No Information Encounters Encounter Description Practice Location Reason(s) For Visit Diagnoses Date Provider Providers Copied on Encounter [facility], [address] [place], [id number], [place] tel:[phone] [facility] No Information Silvio Caldera. [address] [facility] [place], [id number], [place]. tel:[phone] Family History Family Member Type Diagnosis Age At Onset No Information Payers Payer name Insurance type Covered alliance party ID Authoriza tion(s) No Information Social [...]
--- OUTSIDE RECORDS SUMMARY | 2025-01-30 10:15 | XMS_ITS | CONTINUITY OF CARE DOCUMENT ---
Author Name akila wilburn Address Unknown Organization [facility] Address [address] [place] [address] [address] [place] [address] Phone [phone] Care Team Providers Care Fiberglass Grinder Name Role Phone Reggie Krishnamurthy MD Unavailable ELEANOR ARIAS MD Unavailable INSURANCE PROVIDERS Payer name Policy type / Coverage type [place] red green party ID [facility] [id number] Other [id number]
--- OUTSIDE RECORDS SUMMARY | 2025-01-30 10:15 | XMS_ITS | Encounter Summary ---
Author Organization [facility] Address [address] [place] [address] Care Team Providers Care Special Forces Communications Sergeant Name Role Phone Hailey Sharp MD Primary Care Provider [phone] Encounter Details Date Type Department Care Team (Late st Contact Info) Description 07/14/2019 Telephone [facility] Neurology [address] [place] [address] Jared Casey MD [address] [phone] Social History Tobacco Use Types Packs/Day Years Used Date Smoking Tobacco: Never Smokeless Tobacco: Never Alcohol Use Standard Drinks/Week Comments No 0 (1 standard drink = 0.6 oz pur e alcohol) Comments No Sex and Gender Information Value Date Recorded Sex Assigned at Not on file Legal Sex Female 5:28 PM FOREIGN LEGAL CONSULTANT Gender Identity Not on file Sexual Orientation Not on file documented as of this encounter Patient Instructions * Patient Instructions* Prasanna Hyde - 07/14/2019 10:11 AM CDT Current Provider name:BOO Reason for call: NEEDS TO [facility] 07/22 DBS APPT, SATURDAY IS PREFERRED Patient Call Back number: [phone] documented in this encounter Plan of Treatment Upcoming Encounters Date Type Department Care Team (Late Contact Info) Description 05/06/2025 11:30 AM CDT Procedure visit [facility] - Neurology [address] [place] [address], [place] [phone] Jared Casey MD [address] [place] [address] [place] [phone] documented as of this encounter Visit Diagnoses Not on filedocumented in this encounter Care Teams Special Forces Communications Sergeant Relationship Specialty Start Date End Date Hailey Sharp MD PCP - General 06/18/19 documented as of this encounter
--- OUTSIDE RECORDS SUMMARY | 2025-01-30 10:15 | XMS_ITS | Clinical Summary ---
Author Organization [facility] Address [address] [place] [address] Care Team Providers Care Chief Scientific Officer Name Role Phone Antione Wise MD Primary [...] Department Care Team Description 11/06/2024 9:45 AM TRAUMA COUNSELLOR Office Visit [facility] Orthopedic and Sports Medicine [address] [place] [phone] Blaise See MD Juvenile osteochondrosis of tibia tubercle, left leg (Primary Dx) 11/06/2024 Orders Only [facility] Orthopedic and Sports Medicine [address] [place] [phone] Blaise See MD Juvenile osteochondrosis of [...] Hx Other Medical essential tremo rs; Comments: REGULATORY COMPLIANCE MANAGER 05/13/2014 - Essential tremor Family History Medical [...] on file Legal Sex Female 2:14 AM TRAUMA COUNSELLOR Gender Identity Not on file Sexual Orientation Not on file Obstetrics History Last Filed Vital Signs Vital Sign Reading Time Taken Comments Blood Pressure 112/72 11/06/2024 10:20 AM TRAUMA COUNSELLOR Pulse 75 11/06/2024 10:20 AM TRAUMA COUNSELLOR Temperature 37.2 C (99 F) 12/03/2022 7:44 PM TRAUMA COUNSELLOR Respiratory Rate 21 12/03/2022 11:20 PM TRAUMA COUNSELLOR Oxygen Saturation 96% 12/03/2022 11:20 PM TRAUMA COUNSELLOR Inhaled Oxygen Concentration - - Weight 71.8 kg (158 lb 4.8 oz) 11/06/2024 10:20 AM TRAUMA COUNSELLOR Height 162.6 cm (5' 4 ) 11/06/2024 10:20 AM TRAUMA COUNSELLOR Body Mass Index 27.17 11/06/2024 10:20 AM TRAUMA COUNSELLOR Plan of Treatment Health Maintenance Due Date [...] patient's age to complete this topic [facility] Care Teams Chief Scientific Officer Relationship Specialty Start Date End Date Antione Wise MD [address] [address] PCP - General Family Practice 11/16/24
--- OUTSIDE RECORDS SUMMARY | 2025-01-30 10:15 | XMS_ITS | Clinical Summary ---
Author Organization [facility] Address [address] [place] [address] Care Team Providers Care Fur Tailor Name Role Phone Hailey Sharp MD Primary Care Provider [phone] Source Comments [facility],non-[facility] Affiliates and Associated Physician Practices is amultiple site organization consisting of ambulatory clinics and hospital sitesin [place], [place], [place] and [place]. This disclosure is being madepursuant to the Care Everywhere program and may not contain all information available regarding this patient. Last updated 18.[facility] Allergies Active Allergy Reactions Criticality Noted Date [...] Telephone [facility] - Neurology [address] [place] [phone] Jared Casey MD Care Management from Last [...] on file Legal Sex Female 5:28 PM TRUCK HOP Gender Identity Not on file Sexual Orientation [...] visit [facility] - Neurology [address] [facility], [place] [phone] Jared Casey MD [facility] [place] [phone] Health Maintenance Due Date Last Done Comments [...] this topic Medical Devices Implanted Type Area Varnish Thinner Device Identifier Shelf Expiration Date Model / Serial / Lot Vercise M8 Adapter 15cm Implanted:Qty: 2 on 07/10/2019 by Severiano Esteban MD at [facility] Left: Chest Wall 02/15/2020 DB-9218-15 / / Kit Gen Jessicise Copeland g - [id number] Implanted:Qty: 1 on 07/10/2019 by Severiano Esteban MD at [facility] Left: Chest Wall Credit [employer] Scimed 04/06/2021 DB-1200-S / [id number] / Insurance CIGNA Care Teams Fur Tailor Relationship Specialty Start Date End Date Hailey Sharp MD PCP - General 06/18/19
--- OUTSIDE RECORDS SUMMARY | 2025-01-30 10:15 | XMS_ITS | Referral Summary ---
Author Organization [facility] Address [address] [place] [address] Care Team Providers Care Barber Or Beauty Shop Manager Name Role Phone Antione Wise MD Primary Care Provi cherie Encounters Date Type Department Care Team Description 11/06/2024 Orders Only [facility] Orthopedic and Sports Medicine [address] [place] [phone] Blaise See MD Juvenile osteochondrosis of tibia tubercle, left leg (Primary Dx); Acute internal derangement of left knee 11/06/2024 9:45 AM VETERINARY PRACTICE MANAGER Office Visit [facility] Orthopedic and Sports Medicine [address] [place] [phone] Blaise See MD Juvenile osteochondrosis of [...] on file Legal Sex Female 2:14 AM VETERINARY PRACTICE MANAGER Gender Identity Not on file Sexual Orientation Not on file Last Filed Vital Signs Vital Sign Reading Time Taken Comments Blood Pressure 112/72 11/06/2024 10:20 AM VETERINARY PRACTICE MANAGER Pulse 75 11/06/2024 10:20 AM VETERINARY PRACTICE MANAGER Temperature 37.2 C (99 F) 12/03/2022 7:44 PM VETERINARY PRACTICE MANAGER Respiratory Rate 21 12/03/2022 11:20 PM VETERINARY PRACTICE MANAGER Oxygen Saturation 96% 12/03/2022 11:20 PM VETERINARY PRACTICE MANAGER Inhaled Oxygen Concentration - - Weight 71.8 kg (158 lb 4.8 oz) 11/06/2024 10:20 AM VETERINARY PRACTICE MANAGER Height 162.6 cm (5' 4 ) 11/06/2024 10:20 AM VETERINARY PRACTICE MANAGER Body Mass Index 27.17 11/06/2024 10:20 AM VETERINARY PRACTICE MANAGER Plan of Treatment Not on file Insurance [employer]IS ALLEGIANCE Care Teams Barber Or Beauty Shop Manager Relationship Specialty Start Date End Date Antione Wise MD [address] [address] PCP - General Family Practice 11/16/24
[2025-01-30 10:45] LABS: Basophils Absolute Auto 0.1 K/mm3 (0.0-0.1); Basophils Percent Auto 1.2 % (0.2-1.2); Eosinophils Absolute Auto 0.1 K/mm3 (0-0.3); Eosinophils Percent Auto 2.6 % (0-4.4); Hematocrit 39.4 % (37.0-47.0); Hemoglobin 13.1 g/dL (12.0-15.0); Immature Granulocyte Absolute 0.01 K/mm3 (0.00-0.031); Immature Granulocyte Percent A 0.2 % (0-0.5); Lymphocytes Absolute Auto 1.96 K/mm3 (0.9-3.2); Lymphocytes Percent Auto 38.7 % (18.3-44.2); Mean Corpuscular HGB Conc 33.2 g/dl (32-36); Mean Corpuscular Hemoglobin 29.6 pg (26-34); Mean Corpuscular Volume 88.9 fl (80-100); Mean Platelet Volume 10.6 fl (7.4-10.4); Monocytes Absolute Auto 0.5 K/mm3 (0.1-0.6); Monocytes Percent Auto 9.9 % (2.6-8.5); Neutrophils Absolute Auto 2.4 K/mm3 (1.3-6.7); Neutrophils Percent Auto 47.4 % (45.5-73.1); Platelet Count Result 249 k/mm3 (150-375); Red Blood Count 4.43 M/mm3 (4.2-5.4); Red Cell Distribution Width 11.4 % (11.5-14.5); White Blood Count 5.1 K/mm3 (4.5-10.0)
[2025-01-30 10:58] LABS: Add Urine Microscopic? YES; Appearance Urine Clear (Clear); Bacteria Urine None Seen /hpf; Bilirubin Urine Negative (Negative); Blood Urine Negative (Negative); Color Urine Yellow (Yellow); Glucose Urine UA Negative (Negative); Ketones Urine Trace mg/dL (Negative); Leukocyte Esterase Ur 1+ LEU/UL (Negative); Need Manual Microscopic Reviewed; Nitrate Urine Negative (Negative); Non Pathogenic Casts 0-2; Protein Urine Trace mg/dL (Negative); RBC Urine 0-2 /hpf (0-2); Specific Grav Ur 1.023 (1.001-1.035); Squamous Epithelial Cell Urine None Seen /hpf (Few); WBC Urine 0-5 /hpf (0-3)
[2025-01-30 11:00] LABS: Alanine Aminotransferase 15 U/L (6-35); Albumin Level 4.4 g/dL (3.5-5.1); Alkaline Phosphatase 80 U/L (38-126); Anion Gap 9 mmol/L (4-12); Aspartate Amino Transferase 19 U/L (14-36); Bilirubin,Total 0.4 mg/dL (0.2-1.3); Blood Urea Nitrogen 10 mg/dL (7-17); Calcium 9.3 mg/dL (8.4-10.2); Carbon Dioxide 26 mmol/L (22-30); Chloride 105 mmol/L (98-107); Estimated Glomerular Filt Rate > 60; Glucose 87 mg/dL (65-110); Potassium 4.4 mmol/L (3.4-5.0); Sodium 140 mmol/L (137-145)
[2025-01-30 11:11] LABS: Erythrocyte Sedimentation Rate 18 mm/hr (0-20)
[2025-01-31 06:23] LABS: CRP, High Sensitivity 3.5 mg/L
== END 2025-01-30 10:14 | disposition home or self-care (01) ==
LOC: ANHCARD 10:13 → ANHLAB 10:16
PROVIDERS: PCP Family Medicine; Visit Provider Pain Medicine Pain Medicine
DX: Z01.818 Encounter for other preprocedural examination (principal)
CPT/HCPCS: 36415; 80053; 81001; 85025; 85652; 86141; 87086; 93005

== ENCOUNTER 2025-03-17 09:59 | Outpatient (CLI) | payer OTHER, SELFPAY ==
--- NOTE | ~2025-03-17 | CT_ITS ---
EXAMINATION: CT thoracic spine wo con DATE: 03/17/2025 10:23 INDICATION: Preop TECHNIQUE: Computed tomography (CT) of the thoracic spine was performed without intravenous contrast. The dose-length product was 717.72 mGy-cm. Automated exposure control and iterative reconstruction t echnique were employed. COMPARISON: None FINDINGS: There is diffuse idiopathic skeletal hyperostosis (DISH) of the thoracic spine. Vertebral b jude heights are maintained. Normal thoracic kyphosis. No fracture or traumatic malalignment. Visualiz ed lung parenchyma unremarkable. No paraspinal soft tissue abnormality. IMPRESSION: 1. No significant abnormality of the thoracic spine. Reviewed, dictated and finalized at location A.
--- OUTSIDE RECORDS SUMMARY | 2025-03-17 10:16 | XMS_ITS | CONTINUITY OF CARE DOCUMENT ---
Author Name akila wilburn Address Unknown Organization [facility] Address [address] [place] [address] [address] [place] [address] Phone [phone] Care Team Providers Care Paint Brush Maker Name Role Phone Reggie Krishnamurthy MD Unavailable [phone] ELEANOR ARIAS MD Unavailable INSURANCE PROVIDERS Payer name Policy type / Coverage type [place] red libertarian ID [facility] [id number] Other [id number]
--- OUTSIDE RECORDS SUMMARY | 2025-03-17 10:16 | XMS_ITS | Referral Summary ---
Author Organization [facility] Address [address] [place] [address] Care Team Providers Care Mandarin Teacher Name Role Phone Antione Wise MD Primary [...] on file Legal Sex Female 2:14 AM ACQUISITION MANAGER Gender Identity Not on file Sexual Orientation Not on file Last Filed Vital Signs Vital Sign Reading Time Taken Comments Blood Pressure 112/72 11/06/2024 10:20 AM ACQUISITION MANAGER Pulse 75 11/06/2024 10:20 AM ACQUISITION MANAGER Temperature 37.2 C (99 F) 12/03/2022 7:44 PM ACQUISITION MANAGER Respiratory Rate 21 12/03/2022 11:20 PM ACQUISITION MANAGER Oxygen Saturation 96% 12/03/2022 11:20 PM ACQUISITION MANAGER Inhaled Oxygen Concentration - - Weight 71.8 kg (158 lb 4.8 oz) 11/06/2024 10:20 AM ACQUISITION MANAGER Height 162.6 cm (5' 4) 11/06/2024 10:20 AM ACQUISITION MANAGER Body Mass Index 27.17 11/06/2024 10:20 AM ACQUISITION MANAGER Plan of Treatment Not on file Insurance [employer]LEGIANCE Care Teams Mandarin Teacher Relationship Specialty Start Date End Date Antione Wise MD [address] [address] PCP - General Family Practice 11/16/24
--- OUTSIDE RECORDS SUMMARY | 2025-03-17 10:16 | XMS_ITS | Clinical Summary ---
Author Organization [facility] [employer] Address [address] [place] [address] Care Team Providers Care Licensed Funeral Director And Embalmer Name Role Phone Hailey Sharp MD Primary Care Provider [phone]- [phone] Source Comments [facility],non-[facility] Affiliates and Associated Physician Practices is amultiple site organization consisting of ambulatory clinics and hospital sitesin [place], [place], [place] and [place]. This disclosure is being madepursuant to the Care Everywhere program and may not contain all information available regarding this patient. Last updated 18.[facility] [employer] Allergies Active Allergy Reactions Criticality Noted Date [...] Telephone [facility] - Neurology [address] [place] [phone] Jared Casey MD Care Management from Last [...] on file Legal Sex Female 5:28 PM SIDE STITCHER Gender Identity Not on file Sexual Orientation [...] A M CDT Height 165.1 cm (5' 5) 05/06/2024 7:50 AM CDT Body Mass Index 26.19 05/06/2024 7:50 AM CDT Plan of Treatment Upcoming Encounters Date Type Department Care Team (Late st Contact Info) Description 05/06/2025 11:30 AM CDT Procedure visit [facility] Neurology [address] [facility], [place] [phone] Jared Casey MD [facility] [place] [address] Health Maintenance Due Date Last Done Comments [...] this topic Medical Devices Implanted Type Area Milk Pickup Driver Device Identifier Shelf Expiration Date Model / Serial / Lot Vercise M8 Adapter 15cm Implanted:Qty: 2 on 07/10/2019 by Severiano Esteban MD at [facility] Left: Chest Wall 02/15/2020 DB-9218-15 / / Kit Gen Jessicise Copeland g - [id number] Implanted:Qty: 1 on 07/10/2019 by Severiano Esteban MD at [facility] Left: Chest Wall [employer] Scimed 04/06/2021 DB-1200-S / [id number] / Insurance [employer] Care Teams Licensed Funeral Director And Embalmer Relationship Specialty Start Date End Date Hailey Sharp MD PCP - General 06/18/19
--- OUTSIDE RECORDS SUMMARY | 2025-03-17 10:16 | XMS_ITS | Encounter Summary ---
Author Organization [facility] Address [address] [place] [address] Care Team Providers Care Powerhouse Mechanic Name Role Phone Hailey Sharp MD Primary Care Provider [phone]- [phone] Encounter Details Date Type Department Care Team (Late st Contact Info) Description 07/14/2019 Telephone [facility] Neurology [address] [place] [address] Jared Casey MD [address] [phone] Social History Tobacco Use Types Packs/Day Years Used Date Smoking Tobacco: Never Smokeless Tobacco: Never Alcohol Use Standard Drinks/Week Comments No 0 (1 standard drink = 0.6 oz pur e alcohol) Comments No Sex and Gender Information Value Date Recorded Sex Assigned at Not on file Legal Sex Female 5:28 PM EMBEDDED SOFTWARE ENGINEER Gender Identity Not on file Sexual Orientation Not on file documented as of this encounter Patient Instructions * Patient Instructions* Prasanna Hyde - 07/14/2019 10:11 AM CDT Current Provider name:BOO Reason for call: NEEDS TO [facility] 07/22 DBS APPT, SATURDAY IS PREFERRED Patient Call Back number: [phone] documented in this encounter Plan of Treatment Upcoming Encounters Date Type Department Care Team (Late Contact Info) Description 05/06/2025 11:30 AM CDT Procedure visit [facility] - Neurology [address] [place] [address], [place] [address] Jared Casey MD [address] [place] [address] [place] [phone] documented as of this encounter Visit Diagnoses Not on filedocumented in this encounter Care Teams Powerhouse Mechanic Relationship Specialty Start Date End Date Hailey Sharp MD PCP - General 06/18/19 documented as of this encounter
--- OUTSIDE RECORDS SUMMARY | 2025-03-17 10:16 | XMS_ITS | Clinical Summary ---
Author Organization [facility] Address [address] [place] [address] Phone Care Team Providers Care Lithopress Operator Name Role Phone Arnie Tee MD Primary Care Provider [phone] Social History Tobacco Use Types Packs/Day Years Used Date Smoking Tobacco: Never Assessed Comments Unknown Sex and Gender Information Value Date Recorded Sex Assigned at Not on file Legal Sex Female 2:31 PM FOOD AND NUTRITION TEACHER Gender Identity Not on file Sexual Orientation [...] 2021 Zoster Immunization (1 of 2) 2021 SARS-COV-2 Immunization (3 - 2023- season) 2024 05/19/2021, 04/27/2021 Influenza Immunization (Seas on Ended) 2025 Respiratory Syncytial Virus (RSV) Immunization (Adult) (1 - 1-dose 75+ series) 2046 DTaP/Tdap/Td Immunization Discontinued 10/14/2007 Human Papillomavirus (HPV) Immunization Aged Out No longer eligible based on patient's age to complete this topic Meningococcal Immunization (ACWY) Aged Out No longer eligible based on patient's age to complete this topic Rotavirus Immunization Aged Out No lo nger eligible based on patient's age to complete this topic Insurance Care Teams Lithopress Operator Relationship Specialty Start Date End Date Arnie Tee MD [address] [place] [id number] (work) PCP - General Internal Medicine 08/27/18
--- OUTSIDE RECORDS SUMMARY | 2025-03-17 10:16 | XMS_ITS | Clinical Summary ---
Author Organization [facility] Address [address] [place] [address] Care Team Providers Care Application Engineer Name Role Phone Antione Wise MD Primary [...] Hx Other Medical rt hip injury; Comments: [facility] 05/13/2014 - Hx Other Medical Headache, migra ine Depression Depression Hx Other Medical tremor; Comment s: [facility] 02/04/2015 - Hx Other Medical Essential Tremo r; Comments: [facility] 05/13/2014 - Hx Other Medical essential tremo rs; Comments: [facility] 05/13/2014 - Essential tremor Family History Medical [...] on file Legal Sex Female 2:14 AM ADMINISTRATIVE JOB TITLES Gender Identity Not on file Sexual Orientation Not on file Obstetrics History Last Filed Vital Signs Vital Sign Reading Time Taken Comments Blood Pressure 112/72 11/06/2024 10:20 AM ADMINISTRATIVE JOB TITLES Pulse 75 11/06/2024 10:20 AM ADMINISTRATIVE JOB TITLES Temperature 37.2 C (99 F) 12/03/2022 7:44 PM ADMINISTRATIVE JOB TITLES Respiratory Rate 21 12/03/2022 11:20 PM ADMINISTRATIVE JOB TITLES Oxygen Saturation 96% 12/03/2022 11:20 PM ADMINISTRATIVE JOB TITLES Inhaled Oxygen Concentration - - Weight 71.8 kg (158 lb 4.8 oz) 11/06/2024 10:20 AM ADMINISTRATIVE JOB TITLES Height 162.6 cm (5' 4) 11/06/2024 10:20 AM ADMINISTRATIVE JOB TITLES Body Mass Index 27.17 11/06/2024 10:20 AM ADMINISTRATIVE JOB TITLES Plan of Treatment Health Maintenance Due Date Last Done Comments Breast Cancer Screening-Mammogram 1971 Colon Cancer Screening-Colonoscopy 1971 Depression Screening 1971 Hepatitis C Screening 1971 Hepatitis B Screening 1989 Regular Well Visit/Exam 18-64 1989 DTaP/Tdap/Td Vaccine (1 - Tdap) 03/24/2019 03/23/2019, 10/14/2007 Zoster Vaccine (1 of 2) 2021 Covid-19 Vaccine ( season) 2024 06/02/2021, 05/19/2021, 05/13/2021, Additional history exists Influenza Vaccine (Season Ended) 2025 Pneumococcal vaccine <65 Aged Out No longer eligible based on patient's age to complete this topic Insurance [employer] Care Teams Application Engineer Relationship Specialty Start Date End Date Antione Wise MD [address] [place] [address] PCP - General Family Practice 11/16/24
== END 2025-03-17 10:00 | disposition home or self-care (01) ==
PROVIDERS: PCP Family Medicine; Visit Provider Pain Medicine Pain Medicine
DX: Z01.818 Encounter for other preprocedural examination (principal)
CPT/HCPCS: 72128

== ENCOUNTER 2025-05-22 10:13 | Outpatient (CLI) | payer OTHER, SELFPAY ==
--- OUTSIDE RECORDS SUMMARY | 2025-05-22 10:18 | XMS_ITS | Clinical Summary ---
Author Organization [facility] Address [address] [place] [address] Care Team Providers Care Printer Repair Technician Name Role Phone Hailey Sharp MD Primary Care Provider [phone] Source Comments [facility] Affiliates and Associated Physician Practices is amultiple site organization consisting of ambulatory clinics and hospital sitesin [place], [place], [place] and [place]. This disclosure is being madepursuant to the Care Everywhere program and may not contain all information available regarding this patient. Last updated 18.[facility] Allergies Active Allergy Reactions Criticality Noted Date [...] on file Legal Sex Female 5:28 PM REFUSE COLLECTOR Gender Identity Not on file Sexual Orientation [...] 05/06/2024 7:50 AM CDT Plan of Treatment Health Maintenance Due Date Last Done Comments NEELIMA (AGES 45-75) - COL ON CA SCREENING 1971 COLON MONITORING 1971 COLONOSCOPY - COLON CA SCREENING 1971 CT COLONOGRAPHY - COLON CA SCREENING 1971 Colorectal Cancer Screening 1971 FIT - COLON CA SCREENING 1971 FLEX SIG - COLON CA SCREENING 1971 LIPID TESTING 1971 MAMMOGRAM 1971 HIV SCREENING 1986 HEPATITIS C SCREENING 03/31/1989 DTAP/TDAP/TD VACCINES (1 - Tdap) 1990 HEPATITIS B VACCINE (1 of 3 - 19+ 3-dose series) 1990 PAP SMEAR 1992 PNEUMOCOCCAL VACCINE 50+ (1 of 1 - PCV) 2021 ZOSTER VACCINE (1 of 2) 2021 COVID-19 VACCINE (3 - 2023-2 5 season) 2024 05/19/2021, 04/27/2021 DEPRESSION SCREENING 10/14/2024 INFLUENZA VACCINE (#1) 2025 HIB VACCINE Aged Out No longer [...] this topic Medical Devices Implanted Type Area Internal Control Specialist Device Identifier Shelf Expiration Date Model / Serial / Lot Vercise M8 Adapter 15cm Implanted:Qty: 2 on 07/10/2019 by Severiano Esteban MD at [facility] Left: Chest Wall 02/15/2020 DB-9218-15 / / Kit Gen Vercise Gevia g - [id number] Implanted:Qty: 1 on 07/10/2019 by Severiano Esteban MD at [facility] Left: Chest Wall Neuro [employer] Scimed 04/06/2021 DB-1200-[id number] / [id number] / [place] [address] Care Teams Printer Repair Technician Relationship Specialty Start Date End Date Hailey Sharp MD PCP - General 06/18/19
--- OUTSIDE RECORDS SUMMARY | 2025-05-22 10:18 | XMS_ITS | Continuity of Care Document ---
Author Organization [facility] Address [address] [facility] [place] [address] [place] [address] Phone Care Team Providers Care Director Experimental Medicine Name Role Phone Werner Anguiano MD Unavailable Unavailable Advance Directives Directive Yes / No Effective Date File Name No Information Encounters Encounter Description Practice Location Reason(s) For Visit Diagnoses Date Provider Providers Copied on Encounter [facility], [address] [place], [id number], [place] tel:[phone] [facility] No Information Silvio Caldera. [address] [facility] [place], [id number], [place]. tel:[phone] Family History Family Member Type Diagnosis Age At Onset No Information Payers Payer name Insurance type Covered democrat ID Authoriza tion(s) No Information Social History [...]
--- OUTSIDE RECORDS SUMMARY | 2025-05-22 10:18 | XMS_ITS | Encounter Summary ---
Author Organization [facility] Address [address] [place] [address] Care Team Providers Care Utility Hand Name Role Phone Gladys Gomez Primary Care Provider Encounter Details Date Type Department Care Team (Late st Contact Info) Description 04/15/2025 Results Follow-Up [facility] [employer] [place] [address] [place] [address] Yany Chandra ANP [address] [facility] [address] [place] [address] URINE CULTURE Social History Tobacco Use Types Packs/Day Years Used Date Smoking Tobacco: Never Smokeless Tobacco: Never Alcohol Use Standard Drinks/Week Comments Never 0 (1 standard drink = 0.6 oz pur e alcohol) Comments Unknown Sex and Gender Information Value Date Recorded Sex Assigned at Not on file Legal Sex Female 1:19 PM CDT Gender Identity Not on file Sexual Orientation Not on file documented as of this encounter Miscellaneous Notes * Result Encounter Note - Ze Lopes - 04/15/2025 10:47 AM CDT Patient called back and results were relayed. Recommended to complete the medication as prescribed.Patient voiced understanding. * Result Encounter Note - Nina Zepeda - 04/15/2025 8:09 AM CDT Lvm for pt to call our office back regarding lab * Result Encounter Note - Yany Chandra ANP - 04/15/2025 8:07 AM CDT Contact patient regarding result. Advise pt her urine did not detect a specific bacteria. However, should continue and complete the antibiotic due to her UTI like symptoms. documented in this encounter Plan of Treatment Not on file documented as of this encounter Visit Diagnoses Not on filedocumented in this encounter Care Teams Utility Hand Relationship Specialty Start Date End Date Gladys Gomez DO [address] [place] [id number] PCP - General Family Practice 04/13/25 documented as of this encounter
--- OUTSIDE RECORDS SUMMARY | 2025-05-22 10:18 | XMS_ITS | Clinical Summary ---
Author Organization [facility] [employer] [place] Address [address] [address] Care Team Providers Care Lead Coater Name Role Phone Gladys Gomez Primary Care Provider [phone] Allergies Active Allergy Reactions Criticality Noted Date Comments Adhesive Rash Medium 09/01/2015 Baclofen Dizziness Low 03/16/2022 Bupropion Nausea and Vomiting Low 03/16/2022 Latex Rash Medium 12/24/2014 Needs latex and powder free gloves., Needs latex and powder free gloves. Naltrexone Nausea and Vomiting Low 03/16/2022 Penicillins Nausea and Vomiting Low 01/14/2014 Medications benzonatate (TESSALON) 200 mg capsule 11/05/2024 Active celecoxib (CeleBREX) 100 mg capsule Take 100 mg by mouth 2 times daily. Active celecoxib (CeleBREX) 50 mg capsule Take 100 mg by mouth daily. Active clobetasoL (TEMOVATE) 0.05 % Cream 04/21/2024 Active escitalopram oxalate (LEXAPRO) 20 mg tablet Take 20 mg by mouth daily. 04/29/2024 Active eszopiclone (LUNESTA) 2 mg Tablet TAKE 1 TABLET BY MOUTH DAILY AT BEDTIME NEEDED FOR INSOMNIA 02/18/2024 Active Nurtec ODT 75 mg Tablet, Rapid Dissolve TAKE 1 TABLET BY MOUTH EVERY DAY NEEDED FOR ACUTE/SEVERE MIGRAINE Active Wegovy 2.4 mg/0.75 mL Pen Injector INJECT 2.4 MG UNDER THE SKIN WEEKLY 03/15/2025 Active zolpidem (AMBIEN CR) 6.25 mg Controlled Release tablet TAKE 1 TABLET BY MOUTH DAILY AT BEDTIME NEEDED FOR INSOMNIA 01/30/2024 Active methenamine-met hylene blue-Na biphosphate-phe nyl salicylate-hyos cyamine (URIBEL) 118-10-40.8-36 mg capIndications: Dysuria Take 1 Capsule by mouth 4 times daily. 20 Capsule 04/13/2025 Active Active Problems No known active problems Encounters Date Type Department Care Team Description 05/18/2025 External Device Data ST[facility] ABSTRACTION Provider, Abstract 04/28/2025 External Device Data [facility] ABSTRACTION Provider, Abstract 04/28/2025 External Device Data [place] ABSTRACTION Provider, Abstract 04/20/2025 External Device Data [place] ABSTRACTION Provider, Abstract 04/20/2025 External Device Data [place]STRACTION Provider, Abstract 04/20/2025 External Device Data [place] ABSTRACTION Provider, Abstract 04/15/2025 Results Follow-Up [facility] [employer] [place] [address] [place] [address] Yany Chandra ANP URINE CULTURE 04/13/2025 3:00 PM CDT Office Visit [facility] [employer] [place] [address] [place] [address] Yany Chandra, DAYO Dysuria (Primary Dx) from Last 3 Months Social History Tobacco Use Types Packs/Day Years Used Date Smoking Tobacco: Never Smokeless Tobacco: Never Tobacco Cessation:Counseling Given: Not Answered Alcohol Use Standard Drinks/Week Comments Never 0 (1 standard drink = 0.6 oz pur e alcohol) Comments Unknown Sex and Gender Information Value Date Recorded Sex Assigned at Not on file Legal Sex Female 1:19 PM CDT Gender Identity Not on file Sexual Orientation Not on file Last Filed Vital Signs Vital Sign Reading Time Taken Comments Blood Pressure 112/62 04/13/2025 3:03 PM CDT Pulse 95 04/13/2025 3:03 PM CDT Temperature 36.7 C (98.1 F) 04/13/2025 3:03 PM CDT Respiratory Rate 20 04/13/2025 3:03 PM CDT Oxygen Saturation 97% 04/13/2025 3:03 PM CDT Inhaled Oxygen Concentration - - Weight 73 kg (161 lb) 04/13/2025 3:03 PM CDT Height 165.1 cm (5' 5) 04/13/2025 3:03 PM CDT Body Mass Index 26.79 04/13/2025 3:03 PM CDT Plan of Treatment Health Maintenance Due Date Last Done Comments Pre-Diabetes and Diabetes Screening 1971 HEPATITIS B VACCINES (1 of 3 - 19+ 3-dose series) 1990 DTAP/TDAP/TD VACCINES (1 - Tdap) 10/15/2007 10/14/19 08 BREAST CANCER SCREENING 2011 COLORECTAL SCREENING 2016 Colorectal Cancer Screening 2016 FIT-DNA Q 3 years 2016 FIT/FOBT Q 1 year 2016 Flex Sig/CT Colonography Q 5 years 2016 ZOSTER VACCINE (1 of 2) 2021 COVID-19 Vaccine ( season) 2024 06/02/2021, 05/19/2021, 04/27/2021 INFLUENZA VACCINE (#1) 2025 Procedures Procedure Name Priority Date/Time Associated Diagnosis Comments URINE CULTURE Routine 04/13/2025 3:20 PM CDT Dysuria from Last 3 Months Results * URINE CULTURE (04/13/2025 3:20 PM CDT) [facility]: CULTURE, URINE, ROUTINE Micro Number: [id number] Test Status: Final Specimen Source: Urine, clean catch Specimen Quality: Adequate Result: Less than 10,000 CFU/mL of single Gram negative organism isolated. No further testing will be performed. If clinically indicated, recollection using a method to minimize contamination, with prompt transfer to Urine Culture Transport Tube, is recommended. Test Performed at: [place] [address] [address] [place] [address] [facility] Urine URINE SPECIMEN OBTAINED BY CLEAN CATCH PROCEDURE / Unknown 04/13/2025 3:20 PM CDT 04/14/2025 12:24 AM CDT us Yany Chandra ANP MICROBIOLOGY - GENERAL ORDER KERRIE Final Result [facility] [phone] [place] [address] [address] [place] [place] [address] from Last 3 Months Care Teams Lead Coater Relationship Specialty Start Date End Date Gladys Gomez DO [address] [place] [address] PCP - General Family Practice 04/13/25
--- OUTSIDE RECORDS SUMMARY | 2025-05-22 10:18 | XMS_ITS | Clinical Summary ---
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 Gender Identity Not on file Sexual Orientation Not on file Plan of Treatment Health Maintenance Due Date Last Done Comments Hepatitis C Virus (HCV) Screening 1971 Mammogram 1971 TdaP Immunization 1971 Hepatitis B Immunization (1 of 3 - 19+ 3-dose series) 1990 Pap Smear 1992 Cervical Cancer Screening (CCS) 2001 HPV/Cotest 2001 Cologuard 2016 Colonoscopy 2016 Colorectal Cancer Screening 2016 Immunochemical Fecal Occult Blood 2016 Pneumococcal Immunization (5 0+ years) (1 of 1 - PCV) 2021 Zoster Immunization (1 of 2) 2021 SARS-COV-2 Immunization (3 - 2023- season) 2024 05/19/2021, 04/27/2021 Influenza Immunization (#1) 2025 Respiratory Syncytial Virus (RSV) Immunization (Adult) [...] patient's age to complete this topic Insurance Member Subscriber Plan / Payer (Ef fective for All Dates) Name:Belen Hookdonta Yu Relation to Subscriber:Spouse Name:LOR HOOK Date of :1969 (Home) Address: [address] [place] [address] Payer ID:[id number] (NAIC) Type:Not on file Address: [address] [place] [id number] Care Teams Building Coordinator Relationship Specialty Start Date End Date Arnie Tee MD [address] [place] [address] PCP - General Internal Medicine 08/27/18
--- OUTSIDE RECORDS SUMMARY | 2025-05-22 10:18 | XMS_ITS | Encounter Summary ---
Author Organization [facility] Address [address] [place] [address] Care Team Providers Care Electronic Operator Name Role Phone Hailey Sharp MD Primary Care Provider [phone] Encounter Details Date Type Department Care Team (Late st Contact Info) Description 07/14/2019 Telephone 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 Gender Identity Not on file Sexual Orientation Not on file documented as of this encounter Patient Instructions * Patient Instructions* Prasanna Hyde - 07/14/2019 10:11 AM CDT Current Provider name:BOO Reason for call: NEEDS TO [facility] 07/22 DBS APPT, SATURDAY IS PREFERRED Patient Call Back number: [phone] documented in this encounter Plan of Treatment Not on file documented as of this encounter Visit Diagnoses Not on filedocumented in this encounter Care Teams Electronic Operator Relationship Specialty Start Date End Date Hailey Sharp MD PCP - General 06/18/19 documented as of this encounter
--- OUTSIDE RECORDS SUMMARY | 2025-05-22 10:18 | XMS_ITS | Clinical Summary ---
Author Organization [facility] Address [address] [place] [address] Care Team Providers Care Flight Service Specialist Name Role Phone Antione Wise MD Primary [...] Hx Other Medical rt hip injury; Comments: [facility] 05/13/2014 - Hx Other Medical Headache, migra ine Depression Depression Hx Other Medical tremor; Comment s: [facility] 02/04/2015 - Hx Other Medical Essential Tremo r; Comments: [facility] 05/13/2014 - Hx Other Medical essential tremo rs; Comments: [facility] [place] 05/13/2014 - Essential tremor Family History Medical [...] on file Legal Sex Female 2:14 [employer] Gender Identity Not on file Sexual Orientation Not on file Obstetrics History Last Filed Vital Signs Vital Sign Reading Time Taken Comments Blood Pressure 112/72 11/06/2024 10:20 AM [employer] Pulse 75 11/06/2024 10:20 AM [employer] Temperature 37.2 C (99 F) 12/03/2022 7:44 PM [employer] Respiratory Rate 21 12/03/2022 11:20 PM [employer] Oxygen Saturation 96% 12/03/2022 11:20 PM [employer] Inhaled Oxygen Concentration - - Weight 71.8 kg (158 lb 4.8 oz) 11/06/2024 10:20 AM [employer] Height 162.6 cm (5' 4) 11/06/2024 10:20 AM [employer] Body Mass Index 27.17 11/06/2024 10:20 AM [employer] Plan of Treatment Health Maintenance Due Date Last Done Comments Breast Cancer Screening-Mammogram 1971 Colon Cancer Screening-Colonoscopy 1971 Depression Screening 1971 Hepatitis C Screening 1971 Hepatitis B Screening 1989 Regular Well Visit/Exam 18-64 1989 DTaP/Tdap/Td Vaccine (1 - Tdap) 03/24/2019 03/23/2019, 10/14/2007 Zoster Vaccine (1 of 2) 2021 Covid-19 Vaccine ( season) 2024 06/02/2021, 05/19/2021, 05/13/2021, Additional history exists Influenza Vaccine (#1) 2025 Pneumococcal vaccine <65 Aged Out No longer eligible based on patient's age to complete this topic Insurance [employer] Care Teams Flight Service Specialist Relationship Specialty Start Date End Date Antione Wise MD [id number] [place] [address] PCP - General Family Practice 11/16/24
[2025-05-22 10:46] LABS: Add Urine Microscopic? YES; Appearance Urine Cloudy (Clear); Glucose Urine UA Negative (Negative); Leukocyte Esterase Ur Trace LEU/UL (Negative); Nitrate Urine Negative (Negative); Non Pathogenic Casts 0-2; Specific Grav Ur 1.015 (1.001-1.035)
[2025-05-22 10:56] LABS: Alanine Aminotransferase 16 U/L (6-35); Albumin Level 4.4 g/dL (3.5-5.1); Alkaline Phosphatase 79 U/L (38-126); Anion Gap 10 mmol/L (4-12); Aspartate Amino Transferase 26 U/L (14-36); Bilirubin,Total 0.3 mg/dL (0.2-1.3); Blood Urea Nitrogen 7 mg/dL (7-17); CRP < 0.5 mg/dL (<1.0); Calcium 9.3 mg/dL (8.4-10.2); Carbon Dioxide 22 mmol/L (22-30); Chloride 108 mmol/L (98-107); Estimated Glomerular Filt Rate > 60; Glucose 97 mg/dL (65-110); Potassium 4.3 mmol/L (3.4-5.0); Sodium 140 mmol/L (137-145); Total Protein 7.5 g/dL (6.3-8.2)
[2025-05-22 15:54] LABS: Hematocrit 42.6 % (37.0-47.0); Hemoglobin 14.0 g/dL (12.0-15.0); Immature Granulocyte Percent A 0.5 % (0-0.5); Lymphocytes Absolute Auto 1.82 K/mm3 (0.9-3.2); Mean Corpuscular HGB Conc 32.9 g/dl (32-36); Mean Corpuscular Hemoglobin 28.9 pg (26-34); Mean Corpuscular Volume 87.8 fl (80-100); Nucleated Red Blood Cells Absolute Auto 0.000 K/mm3 (0.0-0.012); Nucleated Red Blood Cells Perc 0.0 % (0.0-0.2); Platelet Count Result 251 k/mm3 (150-375); Red Blood Count 4.85 M/mm3 (4.2-5.4); White Blood Count 4.4 K/mm3 (4.5-10.0)
== END 2025-05-22 10:14 | disposition home or self-care (01) ==
LOC: ANHLAB 10:16
PROVIDERS: PCP Family Medicine; Visit Provider Pain Medicine Pain Medicine
DX: Z01.818 Encounter for other preprocedural examination (principal); Z79.899 Other long term (current) drug therapy
CPT/HCPCS: 36415; 80053; 81001; 85025; 85652; 86140